=== PATIENT | male | born 1940 | race Caucasian/White ===

== ENCOUNTER 2019-09-13 22:59 | Inpatient (IN) | payer MEDICARE, BC ==
[2019-09-14] MEDS ORDERED: Pantoprazole 40 MG VIAL ONE (00:06)
[2019-09-14] MEDS ORDERED: Ondansetron PF 4 MG/2 ML Vial IVP PRN (01:33)
[2019-09-14] MEDS ORDERED: Ondansetron ODT 4 MG TAB PO PRN (01:33)
[2019-09-14] MEDS ORDERED: HumaLOG 300 UNITS/3 ML VIAL SC PRN (01:33)
[2019-09-14] MEDS ORDERED: Acetaminophen 650 MG Suppository PR PRN (01:33)
[2019-09-14] MEDS ORDERED: Dextrose 5% in Water 1,000 ML IV PRN (01:33)
[2019-09-14] MEDS ORDERED: Senokot S 8.6-50 MG TAB PO PRN (01:33)
[2019-09-14] MEDS ORDERED: Acetaminophen 325 MG TAB PO PRN (01:33)
[2019-09-14] MEDS ORDERED: Dextrose 50% Abboject 50 ML SYRINGE SLOW IVP PRN (01:33)
[2019-09-14] MEDS ORDERED: Guaifenesin DM 100-10/5 ML UDCUP PO PRN (01:33)
[2019-09-14] MEDS: Sodium Chloride 0.9% 1,000 ML IV SCH ×2 (01:50→15:06)
[2019-09-14] MEDS: Piperacillin/Tazobactam 3.375 GM in Sodium Chloride 0.9% 100 ML IVPB SCH ×4 (02:13→20:32)
--- NOTE | 2019-09-14 02:15 | HP ---
PRIMARY CARE PHYSICIAN: Dr. James Cerrato. CHIEF COMPLAINT: Altered mental status. HISTORY OF PRESENT ILLNESS: This is a 79-year-old male, with a known history of coronary artery disease, insulin-dependent diabetes mellitus, hyperlipidemia, hypothyroidism, COPD, and hypertension with question of some mild dementia who presented to the [facility] with altered mental status. The patient reportedly was confused starting this morning. Patient's family called EMS and he was brought to the [facility]. There, patient reports that he was not able to tell the date and felt confused about why he was there. He had a negative CT of the brain. There were some abnormalities in his liver function tests. The CT abdomen which showed a possible perforated ulcer versus duodenitis. Hence, the patient was transferred here. The patient reportedly had some tenderness of his abdomen to palpation, but otherwise was asymptomatic. The ER doctor here did talk to Dr. Hart and he recommended continuing the antibiotics and then observation in the hospital and then he will consult. Patient reports that he feels much better than he did this morning. He is now alert and oriented x3, though some question about him having some mild dementia, but he was able to tell me the date, where he is, why he is here, and remembered all of his medical details as well. REVIEW OF SYSTEMS: CONSTITUTIONAL: No fevers. No chills. HEENT: Eyes; no double vision or blurred vision. ENT; no congestion, drainage, or sore throat. CARDIOVASCULAR: No chest pain. No palpitations or racing heart. PULMONARY: No coughing, wheezing, or shortness of breath. GASTROINTESTINAL: No abdominal pain. No nausea or vomiting. No diarrhea or constipation. GENITOURINARY: No dysuria or hematuria. MUSCULOSKELETAL: No muscle aches or joint pain. SKIN: No rashes or lesions noted. NEUROLOGIC: No numbness, tingling, or focal weakness. PAST MEDICAL HISTORY: 1. Coronary artery disease. 2. Diabetes mellitus, insulin dependent, taking his long-acting and short-acting insulin. 3. Hyperlipidemia. 4. Hypothyroidism. 5. COPD. 6. Hypertension. PAST SURGICAL HISTORY: Pacemaker placement. FAMILY HISTORY: Patient does not know of any family medical problems. SOCIAL HISTORY: Patient smokes pipe occasionally, nothing regular. No alcohol or illicit drug use. He does live by himself, but his grandson lives next door to him and his daughter lives the next door down. Patient is a full code. He states that his daughter would be his medical decision maker, her name is Kaila Corona. ALLERGIES: NO KNOWN DRUG ALLERGIES. CURRENT MEDICATIONS: 1. Levothyroxine 125 mcg daily. 2. Metformin 500 mg 3 times a day. 3. Lisinopril 10 mg daily. 4. Atorvastatin 10 mg daily. 5. Tresiba insulin 8 units subcu daily and Humulin R 10 units in the morning and 14 units at night. 6. Aspirin 81 mg daily. PHYSICAL EXAMINATION: VITAL SIGNS: Blood pressure 118/58, pulse 70, respirations 17, O2 saturation 98% on room air, and temperature 98.9. GENERAL: This is a well-developed, well-nourished white male, in no acute distress. HEENT: Pupils are equal, round, and reactive to light. Oropharynx is clear without lesions, erythema, or exudate. NECK: Supple. No lymphadenopathy. No thyroid nodules or enlargement. HEART: Regular rate and rhythm. No murmurs, rubs, or gallops. LUNGS: Clear to auscultation bilaterally. No wheezes, crackles, or rhonchi. ABDOMEN: Soft. Mild discomfort to palpation diffusely. No focal areas of tenderness. No guarding or rebound tenderness. Normoactive bowel sounds. No hepatosplenomegaly or other masses. EXTREMITIES: No clubbing, cyanosis, or edema. SKIN: No rashes or lesions noted. NEUROLOGIC: He moves all extremities equally. No facial droop. PSYCHIATRIC: Patient is currently alert and oriented x3. Normal mood and affect. LABORATORY DATA: CBC with normal white blood cell count of 8.2, 82% neutrophils, hemoglobin 12, hematocrit 39, and platelet count 113. Complete metabolic panel is notable for glucose of 350, down to 263 at our emergency room. Total bilirubin of 2.8, AST of 692, ALT of 495, and alkaline phosphatase of 359. The rest of the CMP was normal. Lactic acid was normal at 2.0. Troponin was indeterminate at 0.032. Urinalysis was grossly unremarkable, except for a lot of sugar. Chest x-ray. I did review the chest x-ray done in the emergency room along with the radiologist's report. There is no acute cardiopulmonary process visualized. CT of the brain shows no acute intracranial process. CT of the abdomen and pelvis shows inflammation around the second part of the duodenum and possibly in the third part of the duodenum as well and then a very small pocket of extraluminal air, which is concerning for the possibility of a perforated ulcer versus a duodenal diverticulum. ASSESSMENT: 1. Altered mental status, resolving, likely secondary to metabolic encephalopathy, improved with fluids and antibiotics. 2. Duodenitis with possible perforation. Patient might possibly have an ulcer versus having a poorly visualized diverticulum. Dr. Hart has been consulted and is going to follow the patient during hospitalization. For now, we will make the patient n.p.o. We will continue Zosyn and continue IV fluids and we will monitor for development of any worsening symptoms. Currently, patient is not septic. We will give Protonix IV 40 mg twice a day. 3. Diabetes mellitus, insulin dependent. We will give patient long-acting insulin 8 units subcu daily and mild insulin sliding scale along with continuing metformin. We will do fingerstick blood sugars q.a.c. and at bedtime. 4. Coronary artery disease. We will resume patient's home medications, including atorvastatin and aspirin. 5. Gastrointestinal prophylaxis. Patient is on Protonix. 6. Deep venous thrombosis prophylaxis. Put patient on sequential compression devices while in bed. 7. Code status. Patient is a full code. Should he be incapacitated, his daughter would be his medical decision maker. Her name is Kaila Corona. Job ID: [id number]
[2019-09-14] MEDS: Levothyroxine Sodium 125 MCG TAB PO SCH (05:59)
[2019-09-14 06:35] LABS: Anion Gap 13 mmol/L (10-20); BUN (Urea Nitrogen) 20 mg/dL (8.4-25.7); Calc. Creatinine Clearance 0 mL/min (70-130); Calcium 8.6 mg/dL (7.8-10.44); Carbon Dioxide 25 mmol/L (23-31); Chloride 106 mmol/L (98-107); Estimated GFR-MDRD 72; Glucose 274 mg/dL (83-110); Potassium 3.7 mmol/L (3.5-5.1); Sodium 140 mmol/L (136-145)
[2019-09-14 06:55] LABS: #Eosinphils 0.1 thou/uL (0.0-0.7); #Lymphocytes 0.6 thou/uL (1.20-3.40); #Monocytes 0.4 thou/uL (0.11-0.59); %Eosinophils 1.3 % (0.0-10.0); %Monocytes 6.2 % (0.0-10.0); %Neutrophils 82.5 % (42.0-75.0); Elliptocytes SLIGHT = 2-5 cells (100X) (0-1/hpf); Hemoglobin 11.5 g/dL (14.0-18.0); MDiff Complete? YES; Mean Corpuscular HGB CONC 33.4 g/dL (32.0-36.0); Mean Corpuscular Volume 90.1 fL (78.0-98.0); Mean Platelet Volume 9.1 fL (7.4-10.4); Platelet Count 109 thou/uL (130-400); Platelet Morphology Comment Appears Decreased; RBC Distribution Width 14.1 % (11.5-14.5); Red Blood Cell (RBC) Count 3.81 mill/uL (4.70-6.10); Schistocytes SLIGHT = 2-5 cells (100X) (0-1/hpf); White Blood Cell (WBC) Count 6.1 thou/uL (4.8-10.8)
[2019-09-14] MEDS: HumaLOG 300 UNITS/3 ML VIAL SC PRN (07:14)
[2019-09-14 08:02] LABS: ALT (SGPT) 324 U/L (8-55); AST (SGOT) 307 U/L (5-34); Albumin 3.4 g/dL (3.4-4.8); Alkaline Phosphatase 251 U/L (40-110); Bilirubin, Total 1.3 mg/dL (0.2-1.2); Globulin 2.4 g/dL (2.4-3.5); Lipase 891 U/L (8-78); Protein, Total 5.8 g/dL (5.8-8.1)
[2019-09-14] MEDS: Insulin Glargine 8 UNITS in Pre-Filled Syringe 1 EACH SC SCH (08:02)
--- NOTE | 2019-09-14 08:02 | CON ---
DATE OF CONSULTATION: 09/14/2019 CHIEF COMPLAINT: Duodenitis. HISTORY OF PRESENT ILLNESS: This is a 79-year-old male with a history of mild dementia, who presented to the emergency room with altered mental status. In the course of his workup, he was found to have upper abdominal mild pain and an elevation in his liver function test. CT scan showed severe inflammatory change in the area of the duodenum and retroperitoneum. There was one single small dot of air that could be outside of the lumen of the bowel, but there was no diffuse free fluid or free air in the abdomen. The patient denies pain, not tachycardic, hemodynamically stable. Denies previous history of abdominal pain. No history of NSAID use. He smokes a pipe. No alcohol. No other drugs. PAST MEDICAL HISTORY: Includes coronary artery disease, diabetes mellitus insulin dependent, hyperlipidemia, hypothyroidism, COPD, hypertension. SURGICAL HISTORY: Pacemakers. FAMILY HISTORY: There was no family history of GI malignancy or anesthetic related complications. MEDICATIONS: Medicines at home include: 1. Metformin. 2. Lisinopril. 3. Statin. 4. Insulin. 5. Aspirin only 81 mg. REVIEW OF SYSTEMS: Ten-system review of systems is otherwise negative unless described above. PHYSICAL EXAMINATION: VITAL SIGNS: Blood pressure 146/77, pulse 70, respirations 16. He is afebrile. HEENT: Sclerae anicteric. Oropharynx clear. NECK: No lymphadenopathy. CHEST: Clear. HEART: Regular rate. ABDOMEN: Soft, minimally tender, epigastric, without guarding or rebound. EXTREMITIES: No ischemia or edema to extremities. LABORATORY DATA: Sodium 140, potassium 3.7, creatinine 1.0, glucose 274. Liver function tests and lipase pending this morning. DIAGNOSTIC DATA: CT scan shows duodenitis and inflammatory change in areas of the second portion of the duodenum. ASSESSMENT: 1. Elevation of liver function tests including bilirubin. 2. No risk factors for perforated duodenal ulcer. PLAN: This small dot of possible free intraperitoneal air is not really significant. He has no abdominal signs of a perforation. He is not tachycardic. I have retested the liver function tests this morning as well as a lipase. We will see what the labs show. Recommended covering with PPI with a GI consult as well. Job ID: [id number]
[2019-09-14] MEDS: metFORMIN 500 MG TAB PO SCH ×2 (08:03→17:50)
[2019-09-14] MEDS: Lisinopril 10 MG TAB PO SCH (08:03)
[2019-09-14] MEDS: Pantoprazole 40 MG VIAL IVP SCH ×2 (08:06→20:32)
[2019-09-14] MEDS: Aspirin 81 mg Enteric Coated Tablet PO SCH (08:14)
[2019-09-14] MEDS ORDERED: Iopamidol-370 76% 500 ML 1 ML ONE (09:06)
--- NOTE | 2019-09-14 13:17 | ULT ---
GALLBLADDER ULTRASOUND: Date: 09/14/2019 INDICATION: Elevated liver function tests. FINDINGS: Gallbladder demonstrates pericholecystic edema and fluid with thickened gallbladder wall. No definite gallstone identified. Technologist describes a negative Liu's sign. Small amount of free fluid around the liver margin. Small right pleural effusion. The liver appears unremarkable. The right kidney is imaged and is unremarkable. Pancreas is obscured. IMPRESSION: 1. Small volume ascites. Pericholecystic edema and fluid, and mild gallbladder wall thickening. Nega tive Liu's sign is described. 2. Small right pleural effusion. POS: [facility]
[2019-09-14 13:38] VITALS: BMI 26.6
--- NOTE | 2019-09-14 14:53 | PDOC.HOSPP ---
- Subjective Encounter Date: 09/14/19 Encounter Time: 14:49 Subjective: Mr. Muniz was seen today in follow-up of altered mental status, and possible duodenitits. He does not have any complaints. He denies abdominal pain, no nausea, he just wants to eat. - Objective Vital Signs & Weight: Vital Signs (12 hours) Temp Pulse Resp BP BP BP Pulse Ox 09/14/19 09:13 159/72 H 09/14/19 09:05 159/72 H 09/14/19 08:03 146/77 H 09/14/19 08:00 98 09/14/19 07:35 98.3 F 70 16 146/77 H 98 09/14/19 05:33 98 F 71 18 148/77 H Weight Admit Weight 169 lb 12.095 oz Weight 169 lb 12.095 oz Result Diagrams: 09/14/19 06:04 09/14/19 06:04 Additional Labs: Accuchecks 09/14/19 09/13/19 04:53 23:17 POC Glucose 271 H 263 H Hospitalist ROS - Medication Medications: Active Medications Generic Name Dose Route Start Last Admin Trade Name Freq PRN Reason Stop Dose Admin Aspirin 81 mg 09/14/19 09:00 09/14/19 08:14 Ecotrin PO Not Given DAILY PÉREZ Sodium Chloride 1,000 mls @ 75 mls/hr 09/14/19 01:33 09/14/19 01:50 Normal Saline 0.9% IV 1,000 mls .[id number] PÉREZ Administration Piperacillin Sod/Tazobactam 100 mls @ 200 mls/hr 09/14/19 02:00 09/14/19 08: 03 Sod 3.375 gm/ Sodium Chloride IVPB 100 mls 0200,0800,1400,2000 PÉREZ Administration Insulin Glargine 8 units/ 0.08 mls @ 0 mls/hr 09/14/19 09:00 09/14/19 08:02 Miscellaneous Medication SC Not Given QAM PÉREZ Insulin Human Lispro 0 units 09/14/19 01:33 09/14/19 07:14 Humalog SC 4 unit .MILD SLIDING SCALE PRN Administration Mild Correctional Scale Levothyroxine Sodium 125 mcg 09/14/19 06:00 09/14/19 05:59 Synthroid PO 125 mcg 0600 PÉREZ Administration Lisinopril 10 mg 09/14/19 09:00 09/14/19 08:03 Zestril PO 10 mg DAILY PÉREZ Administration Metformin HCl 500 mg 09/14/19 08:00 09/14/19 08:03 Glucophage PO Not Given BID-WM [facility] Pantoprazole Sodium 40 mg 09/14/19 09:00 09/14/19 08:06 Protonix IVP 40 mg Q12HR PÉREZ Administration - Exam Eye: PERRL Heart: RRR, no murmur, no gallops, no rubs, normal peripheral pulses Respiratory: CTAB, no wheezes, no rales, no ronchi, normal chest expansion Gastrointestinal: soft, non-tender, non-distended, normal bowel sounds, no palpable masses, no hepatomegaly, no splenomegaly Extremities: no cyanosis, no edema Hosp A/P (1) Altered mental status Code(s): R41.82 - ALTERED MENTAL STATUS, UNSPECIFIED Status: Acute (2) Transaminitis Code(s): R74.0 - NONSPEC ELEV OF LEVELS OF TRANSAMNS & LACTIC ACID DEHYDRGNSE Status: Acute (3) Dementia Code(s): F03.90 - UNSPECIFIED DEMENTIA WITHOUT BEHAVIORAL DISTURBANCE Status: Acute - Plan * Altered mental status- He is awake and alert, and conversing- I suspect he is at his baseline. He is confused, but likely from dementia * Possible Duodenitis- Agree with Protonix IV. * He has been evaluated by Surgery, and there is no suspicion for perforation. His LFT, and Lipase are elevated, but he does not have any symptoms attributed to pancreatitis- will try him on clear liquid diet, and ask GI to see him *
--- NOTE | 2019-09-14 19:40 | CT ---
CT abdomen and pelvis without and with IV contrast HISTORY: Abdominal pain. Possible pancreatitis. COMPARISON: 09/13/2019. FINDINGS: Small amount of bilateral pleural fluid and bibasilar lung atelectasis have increased. Panc reas remains small without associated inflammation. Subtle edematous thickening of the gastric antrum has progressed slightly. The inflamed appearance of the second portion of the duodenum and imm ediately adjacent fat has decreased slightly. The small pockets of gas just medial to the second portion of the duodenum are now better defined and consistent with a large and a small duodenal diver ticulum. Intra-abdominal fat stranding throughout the remainder of the abdomen and small amounts of ascites ar e otherwise stable. Prominent calcification throughout the arterial structures. IMPRESSION : Slight interval improvement in inflammatory appearance of the second portion of the duodenum. Gastric antrum now appears mildly inflamed. Pancreas does not appear inflamed. Duodenal diverticula account for the gas pockets medial to the second portion the duodenum. No eviden ce of perforation. Slight interval increase in bilateral pleural fluid.
[2019-09-14] MEDS: Atorvastatin Calcium 10 MG TAB PO SCH (20:32)
[2019-09-15] MEDS: Piperacillin/Tazobactam 3.375 GM in Sodium Chloride 0.9% 100 ML IVPB SCH ×4 (02:48→21:02)
[2019-09-15] MEDS: Sodium Chloride 0.9% 1,000 ML IV SCH ×2 (04:00→10:13)
[2019-09-15] MEDS: Levothyroxine Sodium 125 MCG TAB PO SCH (05:17)
[2019-09-15] MEDS: HumaLOG 300 UNITS/3 ML VIAL SC PRN ×2 (05:57→11:57)
--- NOTE | 2019-09-15 06:24 | CON ---
DATE OF CONSULTATION: 09/14/2019 REASON FOR CONSULTATION: Abnormal abdominal sonogram, abnormal liver function tests, and evidence of pancreatitis. HISTORY OF PRESENT ILLNESS: Mr. Devon Muniz is a very pleasant 79-year-old , hospitalized through the ER with altered mental status and also mild abnormal lab data and abnormal sonogram. The patient is awake, alert, and communicative. He is oriented to time, place, and person. The patient denies abdominal pain, nausea, or vomiting. No history of any fever. No history of diarrhea, hematochezia, or melena. The patient was brought to the ER because of altered mental status and on physical exam was found to be tender over the epigastric area. Subsequently, he was found to have abnormal LFTs and also evidence of pancreatitis. He had abdominal sonogram done shows no gallstones, but shows mild ascites and also thickening of the gallbladder wall and small amount of pericholecystic fluid. The patient had no fever. There is a possibility of peptic ulcer disease and he is on IV antibiotics. At the present time, he appears very comfortable. Denies any abdominal pain, any chest pain, any dyspnea, or any other GI symptoms. Lab data shows no leukocytosis. WBC 6100, polymorphs 82, lymphocytes 10, and monocytes 6. Platelet count is slightly low at 109,000. Chemistry panel shows normal lytes. Glucose is 274, calcium 8.6, bilirubin 1.3, AST is 307, ALT 324, alkaline phosphatase 251. Lipase is elevated at 891. Abdominal sonogram again shows normal caliber bile duct, but does show small amount of ascites and thickened gallbladder wall. The pancreas is not well visualized. There is some swelling around the duodenal area. No relevant history. ALLERGIES: NONE. SOCIAL HISTORY: The patient does not smoke or drink alcohol. MEDICAL ILLNESSES: 1. Hypertension. 2. Hypothyroidism. 3. Chronic obstructive pulmonary disease. 4. Diabetes mellitus. 5. Hyperlipidemia. PAST SURGICAL HISTORY: Status post pacemaker implant in the past. No other major surgeries. MEDICATION LIST: Reviewed, which includes: 1. Atorvastatin. 2. Levothyroxine. 3. Lisinopril. 4. Insulin. 5. Aspirin. 6. Metformin. 7. . REVIEW OF SYSTEMS: 10-point system reviewed. CONSTITUTIONAL: No history of any weight loss. No fever or chills. No change in exercise tolerance. HEAD: No chronic headache. No dizziness. EYES: No diplopia. No impaired vision. EARS: No ear discharge or ear pain. NOSE: No nosebleed. THROAT: No sore throat or dysphagia. NECK: No stiffness or any limitation of movement. LUNGS: No chronic coughing. No hemoptysis or dyspnea. CARDIOVASCULAR: No chest pain. No palpitation. No dyspnea, orthopnea, or PND. GI: No abdominal pain. No nausea or vomiting, but he is tender on exam. No hematochezia. No melena. GENITOURINARY: No dysuria or hematuria. MUSCULOSKELETAL: No pain. No limitation of movement. NEUROPSYCHIATRY: No depression or anxiety. PHYSICAL EXAMINATION: GENERAL: He is thin built, appears very comfortable. He is awake, alert, and communicative. The admitting history and physical confused. Right now, he is very much alert and was able to give me a reasonably good history. VITAL SIGNS: Afebrile. Pulse is 70, blood pressure 151/83. HEENT: Conjunctivae clear. NECK: Supple. No adenitis or thyromegaly noted. CARDIOVASCULAR: Normal heart sounds. No murmur heard. LUNGS: Clear to auscultation. ABDOMEN: Soft. Abdomen is nondistended. Abdomen is minimally tender over the epigastric area. There is no rebound or guarding. Overall, the exam is very benign except for mild tenderness more over the epigastric area. Bowel sounds are normal. EXTREMITIES: Reveal no edema. DIAGNOSTIC STUDIES: LABORATORY RESULTS: The lab data on admission shows normal leukocytosis. WBC count is normal at 6100, hemoglobin is 11.5 which is slightly low, hematocrit 34.4, MCV 90.1, platelet count is low at 109,000, polymorphs 82, lymphocytes 10, monocytes 6. Chemistry panel; normal lytes, glucose 274, BUN is 20, creatinine 1, bilirubin is 1.3, AST 307, ALT 324, alkaline phosphate 251, albumin is 3.4, lipase is 891. IMPRESSION: 1. A 79-year-old male, altered mental status. On physical exam . He does not complain of pain, but he is tender on physical exam. The abdomen is very benign. No leukocytosis and no guarding or rigidity. Abdominal sonogram shows mild abdominal findings with thickened gallbladder wall, mild ascites, and also thickened duodenum. He does have evidence of pancreatitis. There is a possibility that could have gallstone pancreatitis as he does not drink any alcohol and does not take mediciations that would account for the pancreatitis. 2. Diabetes mellitus. 3. Hyperlipidemia. 4. Hypothyroidism. 5. Hypertension. 6. Chronic obstructive pulmonary disease. 7. Status post pacemaker implant. 8. Low platelet count, etiology unclear and there is no prior history of liver disease. RECOMMENDATION: 1. Keep n.p.o. 2. Continue IV antibiotics. 3. Abdominal CAT scan with contrast to get a better idea pancreatic area. He may need endoscopy before discharge hopefully on Thursday. We will do CAT scan first and then we will make further recommendation. Job ID: [id number]
[2019-09-15 08:31] LABS: #Eosinphils 0.1 thou/uL (0.0-0.7); #Lymphocytes 0.8 thou/uL (1.20-3.40); #Monocytes 0.4 thou/uL (0.11-0.59); %Basophils 0.3 % (0.0-1.0); %Eosinophils 3.2 % (0.0-10.0); %Lymphocytes 17.6 % (21.0-51.0); %Neutrophils 69.9 % (42.0-75.0); Hemoglobin 10.5 g/dL (14.0-18.0); Mean Corpuscular Hemoglobin 29.1 pg (27.0-31.0); Mean Platelet Volume 8.5 fL (7.4-10.4); Platelet Count 108 thou/uL (130-400); RBC Distribution Width 14.2 % (11.5-14.5); Red Blood Cell (RBC) Count 3.62 mill/uL (4.70-6.10); White Blood Cell (WBC) Count 4.3 thou/uL (4.8-10.8)
[2019-09-15] MEDS: Aspirin 81 mg Enteric Coated Tablet PO SCH (08:51)
[2019-09-15] MEDS: metFORMIN 500 MG TAB PO SCH ×2 (08:51→17:28)
[2019-09-15] MEDS: Lisinopril 10 MG TAB PO SCH (08:51)
[2019-09-15 08:52] LABS: ALT (SGPT) 191 U/L (8-55); AST (SGOT) 92 U/L (5-34); Albumin 3.1 g/dL (3.4-4.8); Alkaline Phosphatase 200 U/L (40-110); Anion Gap 10 mmol/L (10-20); BUN (Urea Nitrogen) 19 mg/dL (8.4-25.7); Bilirubin, Total 0.7 mg/dL (0.2-1.2); Calc. Creatinine Clearance 58 mL/min (70-130); Carbon Dioxide 25 mmol/L (23-31); Chloride 108 mmol/L (98-107); Estimated GFR-MDRD 60; Globulin 2.3 g/dL (2.4-3.5); Glucose 192 mg/dL (83-110); Potassium 3.4 mmol/L (3.5-5.1); Protein, Total 5.4 g/dL (5.8-8.1); Sodium 140 mmol/L (136-145)
[2019-09-15] MEDS: Insulin Glargine 8 UNITS in Pre-Filled Syringe 1 EACH SC SCH (08:52)
[2019-09-15] MEDS: Pantoprazole 40 MG VIAL IVP SCH ×2 (08:52→21:49)
--- NOTE | 2019-09-15 17:46 | PDOC.HOSPP ---
- Subjective Encounter Date: 09/15/19 Encounter Time: 17:44 Subjective: Mr. Muniz was seen today in follow-up of duodenitis. He tells me he feels fine , and denies any abdominal pain. - Objective Vital Signs & Weight: Vital Signs (12 hours) Temp Pulse Resp BP BP BP Pulse Ox 09/15/19 12:00 97.7 F 73 18 159/82 H 97 09/15/19 11:05 97.8 F 79 18 138/84 96 09/15/19 08:51 1156/74 H 09/15/19 08:00 97.7 F 70 18 156/74 H 97 Weight Admit Weight 169 lb 12.095 oz Weight 169 lb 12.095 oz Result Diagrams: 09/15/19 08:19 09/15/19 08:19 Additional Labs: Accuchecks 09/15/19 09/15/19 09/15/19 16:52 10:50 04:46 POC Glucose 108 203 H 378 H 09/14/19 19:38 POC Glucose 306 H Hospitalist ROS - Medication Medications: Active Medications Generic Name Dose Route Start Last Admin Trade Name Freq PRN Reason Stop Dose Admin Aspirin 81 mg 09/14/19 09:00 09/15/19 08:51 Ecotrin PO 81 mg DAILY PÉREZ Administration Atorvastatin Calcium 10 mg 09/14/19 21:00 09/14/19 20:32 Lipitor PO 10 mg HS PÉREZ Administration Sodium Chloride 1,000 mls @ 75 mls/hr 09/14/19 01:33 09/15/19 10:13 Normal Saline 0.9% IV 1,000 mls .[id number] PÉREZ Administration Piperacillin Sod/Tazobactam 100 mls @ 200 mls/hr 09/14/19 02:00 09/15/19 13: 22 Sod 3.375 gm/ Sodium Chloride IVPB 100 mls 0200,0800,1400,2000 PÉREZ Administration Insulin Glargine 8 units/ 0.08 mls @ 0 mls/hr 09/14/19 09:00 09/15/19 08:52 Miscellaneous Medication SC 0.08 mls QAM PÉREZ Administration Insulin Human Lispro 0 units 09/14/19 01:33 09/15/19 11:57 Humalog SC 3 unit .MILD SLIDING SCALE PRN Administration Mild Correctional Scale Insulin Human Lispro 0 units 09/14/19 01:33 09/14/19 20:32 Humalog SC 3 unit .BEDTIME SLIDING SC PRN Administration Bedtime Correctional Scale Levothyroxine Sodium 125 mcg 09/14/19 06:00 09/15/19 05:17 Synthroid PO 125 mcg 0600 PÉREZ Administration Lisinopril 10 mg 09/14/19 09:00 09/15/19 08:51 Zestril PO 10 mg DAILY PÉREZ Administration Metformin HCl 500 mg 09/14/19 08:00 09/15/19 17:28 Glucophage PO 500 mg BID-WM PÉREZ Administration Pantoprazole Sodium 40 mg 09/14/19 09:00 09/15/19 08:52 Protonix IVP 40 mg Q12HR PÉREZ Administration - Exam Eye: PERRL, anicteric sclera Heart: RRR, no murmur, no gallops, no rubs, normal peripheral pulses Respiratory: CTAB, no wheezes, no rales, no ronchi, normal chest expansion, no tachypnea Gastrointestinal: soft, non-tender, non-distended, normal bowel sounds, no palpable masses Extremities: no cyanosis, no edema Hosp A/P (1) Altered mental status Code(s): R41.82 - ALTERED MENTAL STATUS, UNSPECIFIED Status: Acute (2) Transaminitis Code(s): R74.0 - NONSPEC ELEV OF LEVELS OF TRANSAMNS & LACTIC ACID DEHYDRGNSE Status: Acute (3) Dementia Code(s): F03.90 - UNSPECIFIED DEMENTIA WITHOUT BEHAVIORAL DISTURBANCE Status: Acute (4) Hypertension Code(s): I10 - ESSENTIAL (PRIMARY) HYPERTENSION Status: Acute (5) Diabetes mellitus type 2 in nonobese Code(s): E11.9 - TYPE 2 DIABETES MELLITUS WITHOUT COMPLICATIONS Status: Acute - Plan * Altered mental status- resolved- may be merely his dementia * Possible Duodenitis- Continue Protonix IV and plan is for EGD tomorrow * Dementia- stable * HTN- blood pressure is controlled * DM- blood glucose is stable- continue Insulin and SSI, while taking oral intake * Hypothyroidism- he is clinically euthyroid continue Levothyroxine
[2019-09-15] MEDS: Atorvastatin Calcium 10 MG TAB PO SCH (21:49)
[2019-09-16] MEDS: Sodium Chloride 0.9% 1,000 ML IV SCH ×2 (01:11→15:46)
[2019-09-16] MEDS: Piperacillin/Tazobactam 3.375 GM in Sodium Chloride 0.9% 100 ML IVPB SCH ×3 (02:12→15:46)
[2019-09-16] MEDS: Levothyroxine Sodium 125 MCG TAB PO SCH (03:28)
--- NOTE | 2019-09-16 08:10 | PRG ---
DATE OF SERVICE: 09/15/2019 This is a hospitalist note. SUBJECTIVE: This is a 79-year-old , hospitalized on 09/14/2019, with altered mental status and on physical exam was found to be tender over the epigastric area. He underwent an abdominal sonogram, which revealed possible small amount of free air from the duodenal sweep and some free fluid. He has no gallstones. The pancreatic area was not visualized during the sonogram. The patient had no fever, no leukocytosis. On exam yesterday, he was very comfortable, did not offer any abdominal pain, nausea, or vomiting. Abdomen was slightly tender over the epigastric area. pancreatitis. The liver function tests were elevated. Not clear what is causing his abnormal LFTs and also abdominal tenderness. He had abdominal CAT scan done late yesterday. The abdominal CAT scan showed some thickening of the gastric antrum and duodenum. No free air seen in the abdomen. found to be a diverticulum in the descending duodenum. The patient had no pancreatic mass. No liver masses. No dilation of bile duct. OBJECTIVE: GENERAL: Appears very comfortable, afebrile. VITAL SIGNS: Very stable. Pulse is 79, blood pressure is 138/84. HEENT: Conjunctivae are clear. NECK: Supple. CARDIOVASCULAR: Within normal limits. LUNGS: Within normal limits. ABDOMEN: Soft. Abdomen is nontender. . No organomegaly. No masses. CLINICAL IMPRESSION: 1. Altered mental status, resolved, etiology unclear. 2. Abnormal LFTs and elevated serum lipase, etiology unclear as he has no gallstones on sonogram and he does not drink alcohol and there is no dilation of the common bile duct. 3. Mild thrombocytopenia, etiology unknown. Overall, he has improved tremendously. He is awake, alert, and communicative. He was given a diabetic diet on this day, and he ate well and he has no abdominal pain. LABORATORY DATA: The lab data from today still show elevation of the LFTs, but seems to be coming down. The AST is down to 92 from previous 307, ALT down to 191 from 324, alkaline phosphatase down to 200 from 251. Bilirubin is 0.7. It is possible that the patient could have had a common bile duct pass down the bile duct, it could account for the abnormal LFTs and also the elevated lipase. Interestingly, he has no abdominal pain, no nausea or vomiting. RECOMMENDATIONS: EGD tomorrow to evaluate the stomach and duodenum. The patient probably can be discharged home after EGD tomorrow and will follow through outpatient. He is on atorvastatin for hyperlipidemia, which probably should be stopped for a while to see if that is causing abnormal LFTs. Dr. Chon Hayes is on-call for me, and we will set up an EGD tomorrow. Job ID: [id number]
[2019-09-16 08:34] LABS: #Eosinphils 0.1 thou/uL (0.0-0.7); #Lymphocytes 0.9 thou/uL (1.20-3.40); #Monocytes 0.3 thou/uL (0.11-0.59); #Neutrophils 2.8 thou/uL (1.40-6.50); %Basophils 0.2 % (0.0-1.0); %Lymphocytes 22.3 % (21.0-51.0); %Monocytes 6.8 % (0.0-10.0); %Neutrophils 68.7 % (42.0-75.0); Hemoglobin 10.7 g/dL (14.0-18.0); Mean Corpuscular HGB CONC 32.8 g/dL (32.0-36.0); Mean Corpuscular Hemoglobin 29.6 pg (27.0-31.0); Mean Corpuscular Volume 90.3 fL (78.0-98.0); Mean Platelet Volume 8.9 fL (7.4-10.4); Platelet Count 100 thou/uL (130-400); RBC Distribution Width 14.1 % (11.5-14.5); Red Blood Cell (RBC) Count 3.61 mill/uL (4.70-6.10)
[2019-09-16 08:53] LABS: ALT (SGPT) 132 U/L (8-55); AST (SGOT) 46 U/L (5-34); Alkaline Phosphatase 171 U/L (40-110); Anion Gap 17 mmol/L (10-20); BUN (Urea Nitrogen) 18 mg/dL (8.4-25.7); Bilirubin, Total 0.6 mg/dL (0.2-1.2); Calc. Creatinine Clearance 59 mL/min (70-130); Calcium 7.6 mg/dL (7.8-10.44); Carbon Dioxide 17 mmol/L (23-31); Chloride 109 mmol/L (98-107); Estimated GFR-MDRD 62; Globulin 2.2 g/dL (2.4-3.5); Glucose 320 mg/dL (83-110); Magnesium 1.2 mg/dL (1.6-2.6); Phosphorus 2.4 mg/dL (2.3-4.7); Potassium 4.1 mmol/L (3.5-5.1); Protein, Total 5.2 g/dL (5.8-8.1); Sodium 139 mmol/L (136-145)
[2019-09-16] MEDS ORDERED: Magnesium Sulfate 4 GM in Sodium Chloride 0.9% 250 ML 250 ML IVPB SCH (09:30)
[2019-09-16] MEDS: metFORMIN 500 MG TAB PO SCH ×2 (10:18→16:59)
[2019-09-16] MEDS: Pantoprazole 40 MG VIAL IVP SCH ×2 (10:21→21:00)
[2019-09-16] MEDS: Lisinopril 10 MG TAB PO SCH (10:24)
[2019-09-16] MEDS: Aspirin 81 mg Enteric Coated Tablet PO SCH (10:25)
[2019-09-16] MEDS: Insulin Glargine 8 UNITS in Pre-Filled Syringe 1 EACH SC SCH (10:31)
[2019-09-16] MEDS: HumaLOG 300 UNITS/3 ML VIAL SC PRN ×2 (10:53→16:59)
[2019-09-16] MEDS ORDERED: PROPOFOL 200 MG/20 ML VIAL ONE (13:57)
--- NOTE | 2019-09-16 14:14 | PRG ---
DATE OF SERVICE: 09/16/2019 SUBJECTIVE: A 79-year-old male was admitted on 14 September 2019, with altered mentation, with abnormal abdominal imaging. He denies any nausea, vomiting, or abdominal discomfort at this time. He is n.p.o. for EGD today. REVIEW OF SYSTEMS: As discussed above, no chest pain, palpitations, fever, chills reported. OBJECTIVE: VITAL SIGNS: Temperature 97.8, pulse of 69, respirations 20, blood pressure of 137/78, O2 saturation 96% on room air. GENERAL: A 79-year-old male, in no apparent distress. LUNGS: Clear to auscultation bilaterally. HEART: S1, S2 present. Regular rate and rhythm. ABDOMEN: Soft, nontender. Bowel sounds present. No rebound or guarding. No costovertebral angle tenderness. EXTREMITIES: No edema or calf tenderness. CURRENT MEDICATIONS: Reviewed. The patient is on 1. Lantus 8 units with IV fluids. 2. Zosyn. 3. IV PPIs. 4. 81 mg aspirin. 5. Lipitor. 6. Levothyroxine. 7. Lisinopril. 8. Metformin. LABORATORY FINDINGS: Magnesium 1.2, potassium 4.1, creatinine 1.1. WBC 4.0 with platelet of 100. CT scan of the abdomen and pelvis by my review showed improvement in the inflammatory appearance of the second portion of the duodenum with some inflammation in the gastric antrum, without any evidence of perforation. Right upper quadrant ultrasound showed small volume ascites. IMPRESSION: 1. Toxic metabolic encephalopathy, improving. 2. Duodenitis/gastritis. 3. Diabetes mellitus type 2. 4. Coronary artery disease. 5. Hypothyroidism. 6. Hyperlipidemia. 7. Chronic obstructive pulmonary disease. 8. Hypertension. 9. Chronic kidney disease, stage 2. 10. Hypomagnesemia. 11. Metabolic acidosis. 12. Abnormal LFTs. PLAN: The patient is scheduled for EGD today. We will continue empiric antibiotics with IV fluids. Continue IV PPIs. We will hold statins due to abnormal LFTs. His LFTs are improving. We will recheck labs in a.m. We will change IV fluid to half NS due to hyperchloremia. Job ID: [id number]
[2019-09-16] MEDS: Sodium Chloride 0.45% 1,000 ML IV SCH ×2 (15:45→21:00)
--- NOTE | 2019-09-16 19:31 | OP ---
DATE OF PROCEDURE: 09/16/2019 PROCEDURE PERFORMED: Esophagogastroduodenoscopy with biopsy. INDICATION FOR PROCEDURE: Abnormal GI imaging showing duodenitis and possible free air, elevated lipase. DESCRIPTION OF PROCEDURE: After the risks and benefits of the procedure were explained to the patient and the patient's surrogate including risks of bleeding, infection, perforation, reactions to anesthesia, aspiration, and/or pain, informed consent was obtained. The patient was then taken to the endoscopy suite, where a deep sedation was administered via propofol and anesthesia support. Once adequate sedation was achieved, the standard gastroscope was introduced into the mouth with intubation of the esophagus, stomach, and the proximal small intestines with the findings listed below. The patient tolerated the procedure well with no immediate perioperative complications. On conclusion of the procedure, the patient was transferred to PACU in satisfactory condition. FINDINGS: Esophagus: Normal-appearing mucosa was seen in the proximal, mid, and distal esophagus. There was no evidence of erosions, ulcerations, mass lesions, or active/recent bleeding. Stomach: Normal-appearing mucosa was seen in the gastric cardia, fundus, body, and along the greater curvature. However, in the antrum and incisura, mild whitish mottling of the gastric mucosa was seen consistent with atrophic gastritis. Upon entry into the gastric antrum, a patch measuring 3 to 4 cm in size was seen in the pre-pyloric region just superior to the pyloric valve itself. In that red patch of erythematous mucosa, 2 very superficial ulcerations were seen measuring 2 to 3 mm in size that were also clean based and had no risk high stigmata of active or recent bleeding. Given the abnormal GI findings on imaging, multiple biopsies were taken from these ulcerations and placed in a specimen jar for further evaluation of possible H pylori. Otherwise, there was no evidence of erosions, mass lesions, or active/recent bleeding. Duodenum: Normal-appearing mucosa was seen in the duodenal bulb. A large duodenal diverticulum was seen in the second portion of the duodenum just past the duodenal sweep, but exhibited normal-appearing mucosa in addition to normal-appearing mucosa within the normal continuous small intestine as well. There was no evidence of erosions, ulcerations, mass lesions, or active/recent bleeding. IMPRESSION: 1. A 3-to 4-cm patch of erythematous mucosa with 2 superficial ulcerations seen in the gastric antrum, status post biopsies for possible Helicobacter pylori. 2. Probable atrophic gastritis seen in the distal stomach. 3. 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 RECOMMENDATIONS: 1. We would continue to avoid NSAIDs if possible during this hospitalization given the propensity to cause inflammation within the stomach and the duodenum. 2. We would continue the patient on pantoprazole 40 mg b.i.d. 3. We will follow up on the biopsy results and treat the patient with triple therapy if positive for Helicobacter pylori. 4. The patient to follow up in the GI clinic with Dr. Figueroa in 2 to 3 weeks for further followup. We will sign off at this time. Again, the patient is to follow up with Dr. Figueroa in the GI Outpatient Clinic in 2 to 3 weeks with followup on the biopsy results at that time. Please call with any additional questions. Job ID: [id number]
[2019-09-17] MEDS: Levothyroxine Sodium 125 MCG TAB PO SCH (05:25)
[2019-09-17] MEDS: HumaLOG 300 UNITS/3 ML VIAL SC PRN (05:26)
[2019-09-17] MEDS: metFORMIN 500 MG TAB PO SCH (07:49)
[2019-09-17] MEDS: Aspirin 81 mg Enteric Coated Tablet PO SCH (07:49)
[2019-09-17] MEDS: Insulin Glargine 8 UNITS in Pre-Filled Syringe 1 EACH SC SCH (07:49)
[2019-09-17] MEDS: Lisinopril 10 MG TAB PO SCH (07:49)
[2019-09-17] MEDS: Pantoprazole 40 MG VIAL IVP SCH (07:50)
[2019-09-17 08:02] VITALS: BP 125/75; TEMP 97.6
--- NOTE | 2019-09-17 08:21 | DIS ---
DATE OF ADMISSION: 09/14/2019 DATE OF DISCHARGE: 09/17/2019 DISCHARGE DISPOSITION: Home. FOLLOWUP: 1. Follow up with primary care physician, Dr. Keri Moore in 1 week. 2. Follow up with Dr. eVronika Figueroa in 1 week. 3. Repeat LFTs after 1 week is recommended. 4. The patient was advised to hold Lipitor for now due to abnormal LFTs. 5. The patient was advised to follow up on the gastric biopsy report. ALLERGIES: NO KNOWN DRUG ALLERGIES. DISCHARGE MEDICATIONS: Protonix 40 mg b.i.d. All other home medications were left unchanged except for statins. The patient was seen and examined on the day of discharge. Denies any new complaints. No fever, chills, chest pain, nausea, or vomiting reported. DIAGNOSTIC TESTS: 1. Total bilirubin on admission was 2.8, at discharge is 0.6. 2. AST was 692, at discharge is 46. ALT on admission was 495, at discharge is 132. Alkaline phosphatase on admission was 359, at discharge is 171. 3. Troponin was 0.032. 4. Potassium 3.4, at discharge is 4.1. 5. Blood cultures were negative. 6. CT scan of the abdomen and pelvis showed possible duodenitis with questionable perforation. 7. CT scan of the brain showed diffuse cortical atrophy with long-term small- vessel disease. 8. Right upper quadrant ultrasound showed pericholecystic edema and fluid with mild gallbladder wall thickening. 9. Lipase on admission 851. At discharge 54. INPATIENT PROCEDURES: On September 16, 2019, the patient underwent EGD that showed 3 to 4 cm patch of erythematous mucosa with two superficial ulcerations seen in the gastric antrum, status post biopsies. There was also probable atrophic gastritis in the distal stomach. There was a large duodenal diverticulum in the second portion of the duodenum, most likely the reason for possible free air seen on the initial scans. BRIEF HOSPITAL COURSE: The patient is a 79-year-old male with coronary artery disease, diabetes mellitus type 2, hyperlipidemia, and hypertension, presented to the emergency room with altered mentation. He was found to have abnormal LFTs with CT scan concerning for duodenitis versus perforated ulcer. He was monitored on the medical floor. He was evaluated by Gastroenterology as well as General Surgery. He also had significantly abnormal LFTs that gradually improved. He was empirically placed on antibiotics, which were discontinued yesterday. He was started on IV PPI 40 mg b.i.d. that has been transitioned to oral. He underwent EGD as discussed above. He denies any nausea, vomiting, or abdominal discomfort. His mentation is back to baseline. He appears stable for discharge. FINAL DIAGNOSES: 1. Toxic metabolic encephalopathy, resolved. 2. Abn LFTs with elevated lipase on admission - Pt may have passed a stone. - improving 3. Gastritis, rule out H pylori. 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 4. Diabetes mellitus type 2. 5. Coronary artery disease. 6. Hypertension. 7. Hypothyroidism. 8. Chronic obstructive pulmonary disease. 9. Hyperlipidemia. Statins will be held due to abnormal LFTs. 10. Chronic kidney disease, stage 2. 11. Hypomagnesemia, replaced. 12. Metabolic acidosis. 13. Abnormal LFTs on admission, resolved. The patient understands the above plan of care. Job ID: [id number] [facility]
[2019-09-17] MEDS: Sodium Chloride 0.45% 1,000 ML IV SCH (08:56)
[2019-09-17] MEDS ORDERED: Saccharomyces boulardii 250 MG CAP PO SCH (09:00)
[2019-09-17] MEDS ORDERED: Amoxicillin/Potassium Clav 500 MG TAB PO SCH (09:00)
[2019-09-17 09:35] LABS: ALT (SGPT) 99 U/L (8-55); AST (SGOT) 27 U/L (5-34); Albumin 2.9 g/dL (3.4-4.8); Alkaline Phosphatase 157 U/L (40-110); Anion Gap 11 mmol/L (10-20); BUN (Urea Nitrogen) 14 mg/dL (8.4-25.7); Bilirubin, Total 0.5 mg/dL (0.2-1.2); Calc. Creatinine Clearance 76 mL/min (70-130); Calcium 7.7 mg/dL (7.8-10.44); Carbon Dioxide 22 mmol/L (23-31); Chloride 110 mmol/L (98-107); Estimated GFR-MDRD 83; Globulin 2.2 g/dL (2.4-3.5); Glucose 175 mg/dL (83-110); Lipase 54 U/L (8-78); Potassium 3.6 mmol/L (3.5-5.1); Protein, Total 5.1 g/dL (5.8-8.1); Sodium 139 mmol/L (136-145)
== END 2019-09-17 11:45 | disposition home health service (06) | DRG 391 ==
LOC: ERS 22:59 → T4-B 09-14 00:16
PROVIDERS: ADMIT Emergency Medicine; ATTEND Emergency Medicine
PROC: 0DB78ZX Excision of Stomach, Pylorus, Via Natural or Artificial Opening Endoscopic, Diagnostic (ICD-10-PCS; principal; 2019-09-16)
DX: K29.70 Gastritis, unspecified, without bleeding (principal); G92 Toxic encephalopathy; E87.2 Acidosis; I25.10 Atherosclerotic heart disease of native coronary artery without angina pectoris; I12.9 Hypertensive chronic kidney disease with stage 1 through stage 4 chronic kidney disease, or unspecified chronic kidney disease; E11.22 Type 2 diabetes mellitus with diabetic chronic kidney disease; E03.9 Hypothyroidism, unspecified; J44.9 Chronic obstructive pulmonary disease, unspecified; E78.5 Hyperlipidemia, unspecified; N18.2 Chronic kidney disease, stage 2 (mild); E83.42 Hypomagnesemia; D69.6 Thrombocytopenia, unspecified; F17.290 Nicotine dependence, other tobacco product, uncomplicated; F03.90 Unspecified dementia, unspecified severity, without behavioral disturbance, psychotic disturbance, mood disturbance, and anxiety; R94.5 Abnormal results of liver function studies; Z79.4 Long term (current) use of insulin; Z95.0 Presence of cardiac pacemaker
CPT/HCPCS: 36415; 36416; 74170; 76705; 80053; 83690; 83735; 84100; 85025; 88305; 88312; 96374; C9113; J1815; J2543; J2704; J3475; J3490; J7050; Q9967

== ENCOUNTER 2020-03-12 20:12 | Inpatient (IN) | payer MEDICARE, BC, OTHER ==
[2020-03-12 20:54] LABS: Bilirubin Negative (Negative); Blood, Urine Negative (Negative); Clarity Clear (Clear); Glucose, Urine (Dipstick) Greater than 1000 mg/dL (Negative); Ketone, Urine Negative (Negative); Leukocyte Negative Leu/uL (Negative); Nitrite Negative (Negative); Protein, Urine (Dipstick) 10 mg/dL (Neg-Trace); Specific Gravity, Urine 1.021 (1.002-1.036); Urobilinogen Normal mg/dL (Less than 2); pH, Urine 6.5 (5.0-9.0)
--- NOTE | 2020-03-12 21:40 | RAD ---
PORTABLE CHEST: History: Hypertension. Altered mental status. Comparison: 09-13-2019 FINDINGS: Heart size is within normal limits for portable technique with a pacemaker present. Increased density in the right base with some blunting to the right costophrenic angle suggests effusion with associat ed atelectasis. IMPRESSION: Increased density in the right base which appears to be related to small right pleural effusion. POS: OFF
[2020-03-12 21:42] LABS: Hemoglobin 11.7 g/dL (14.0-18.0); Mean Corpuscular HGB CONC 32.9 g/dL (32.0-36.0); Mean Corpuscular Hemoglobin 29.2 pg (27.0-31.0); Mean Corpuscular Volume 88.9 fL (78.0-98.0); RBC Distribution Width 14.4 % (11.5-14.5); Red Blood Cell (RBC) Count 4.01 mill/uL (4.70-6.10); White Blood Cell (WBC) Count 3.7 thou/uL (4.8-10.8)
[2020-03-12 21:56] LABS: #Eosinphils 0.1 thou/uL (0.0-0.7); #Lymphocytes 0.8 thou/uL (1.20-3.40); #Monocytes 0.2 thou/uL (0.11-0.59); #Neutrophils 2.6 thou/uL (1.40-6.50); %Basophils 0.5 % (0.0-1.0); %Eosinophils 2.5 % (0.0-10.0); %Lymphocytes 21.2 % (21.0-51.0); %Monocytes 6.5 % (0.0-10.0); %Neutrophils 69.3 % (42.0-75.0); ALT (SGPT) 11 U/L (8-55); AST (SGOT) 18 U/L (5-34); Albumin 3.9 g/dL (3.4-4.8); Alkaline Phosphatase 80 U/L (40-110); Anion Gap 13 mmol/L (10-20); BUN (Urea Nitrogen) 25 mg/dL (8.4-25.7); Bilirubin, Total 0.4 mg/dL (0.2-1.2); Calc. Creatinine Clearance 0 mL/min (70-130); Calcium 8.7 mg/dL (7.8-10.44); Carbon Dioxide 24 mmol/L (23-31); Chloride 107 mmol/L (98-107); Estimated GFR-MDRD 62; Globulin 2.7 g/dL (2.4-3.5); Glucose 319 mg/dL (83-110); Magnesium 1.3 mg/dL (1.6-2.6); Mean Platelet Volume 10.2 fL (7.4-10.4); Platelet Count 97 thou/uL (130-400); Platelet Morphology Comment Appears Decreased; Potassium 4.6 mmol/L (3.5-5.1); Protein, Total 6.6 g/dL (5.8-8.1); Sodium 139 mmol/L (136-145)
[2020-03-12] MEDS ORDERED: Magnesium 2 GM/50 ML BAG (IN WATER) ONE (22:22)
[2020-03-12] MEDS ORDERED: Labetalol HCl 100 MG/20 ML VIAL ONE (22:22)
[2020-03-13] MEDS ORDERED: Dextrose 50% Abboject 50 ML SYRINGE SLOW IVP PRN (01:43)
[2020-03-13] MEDS ORDERED: Dextrose 5% in Water 1,000 ML IV PRN (01:43)
[2020-03-13] MEDS ORDERED: Sodium Chloride 0.9% 1,000 ML IV SCH (01:45)
--- NOTE | 2020-03-13 02:00 | PDOC.HHP ---
Hospitalist HPI - History of Present Illness Confusion History of Present Illness: 79-year-old gentleman with a history of hypertension and diabetes mellitus was brought to the emergency department due to episodes of confusion. Patient reports intermittent episodes of confusion, which is worse at night, poor sleep and forgetfulness. He states that his symptoms have been present for over a year now. He was hospitalized in August 2019 for similar symptoms. Patient was brought to the emergency department by his daughter due to increased confusion today. Abnormal findings in the ED include hyperglycemia with blood glucose in the 300s. Patient also noted to be severely hypertensive with a systolic blood pressure up to 231. He has significant glycosuria but no ketonuria. UA shows no evidence of UTI. Patient may have waxing and waning delirium which could be related to severe hypertension or hyperglycemia. He stated he is scheduled to see a neurologist for evaluation for dementia. He is hospitalized for further evaluation and management. ED Course: He was given IV labetalol for severe blood pressure. Also given magnesium sulfate for hypomagnesemia. Hospitalist ROS - Review of Systems Other: Patient denied any fever or chills, no dysuria, no urinary retention. Except as documented, all other systems reviewed and negative. - Medication Medications: Medication Instructions Recorded Confirmed Type Levothyroxine Sodium 125 mcg PO DAILY 09/14/19 03/13/20 History Lisinopril 10 mg PO DAILY 09/14/19 03/13/20 History metFORMIN HCl 500 mg PO BID-WM 09/14/19 03/13/20 History Atorvastatin Calcium [Lipitor] 10 mg PO DAILY 03/13/20 03/13/20 History Insulin Glargine [Lantus] 11 units SC QAM 03/13/20 03/13/20 History Insulin Regular, Human [Novolin R] 5 unit SQ BID 03/13/20 03/13/20 History Magnesium Chloride [Slow-Mag] 1 tab PO DAILY 03/13/20 03/13/20 History Hospitalist History - Past Medical History Other Medical History: Hypertension, diabetes, coronary artery disease, hypothyroidism, COPD, hyperlipidemia. - Past Surgical History Other Surgical History: Pacemaker placement. - Family History Family History: reports: diabetes mellitus (Mother) - Social History Smoking Status: Current every day smoker (pipe) Alcohol: reports: None Drugs: reports: none Living Situation: Alone (Family lives close by) - Exam General Appearance: NAD Eye: PERRL, anicteric sclera ENT: normocephalic atraumatic, no oropharyngeal lesions, moist mucosa Neck: supple, symmetric, no JVD, no thyromegaly Heart: RRR, no murmur, no rubs, diminshed peripheral pulses (Dorsalis pedis- bilateral.) Respiratory: CTAB, no wheezes, no rales, no ronchi Gastrointestinal: soft, non-tender, non-distended, normal bowel sounds Extremities: no cyanosis, no edema Skin: normal turgor, no rashes Neurological: cranial nerve grossly intact, no weakness, no focal deficits Hospitalist Results - Labs Result Diagrams: 03/13/20 03:42 03/13/20 03:42 Lab results: WBC 3.7 thou/uL (4.8-10.8) L 03/12/20 21:21 Hgb 11.7 g/dL (14.0-18.0) L 03/12/20 21:21 Hct 35.6 % (42.0-52.0) L 03/12/20 21:21 MCV 88.9 fL (78.0-98.0) 03/12/20 21:21 Plt Count 97 thou/uL (130-400) L 03/12/20 21:21 Neutrophils % 69.3 % (42.0-75.0) 03/12/20 21:21 Sodium 139 mmol/L (136-145) 03/12/20 21:21 Potassium 4.6 mmol/L (3.5-5.1) 03/12/20 21:21 Chloride 107 mmol/L (98-107) 03/12/20 21:21 Carbon Dioxide 24 mmol/L (23-31) 03/12/20 21:21 BUN 25 mg/dL (8.4-25.7) 03/12/20 21:21 Creatinine 1.15 mg/dL (0.7-1.3) 03/12/20 21:21 Glucose 319 mg/dL (83-110) H 03/12/20 21:21 Calcium 8.7 mg/dL (7.8-10.44) 03/12/20 21:21 Total Bilirubin 0.4 mg/dL (0.2-1.2) 03/12/20 21:21 AST 18 U/L (5-34) 03/12/20 21:21 ALT 11 U/L (8-55) 03/12/20 21:21 Alkaline Phosphatase 80 U/L (40-110) 03/12/20 21:21 Troponin I 0.016 ng/mL (< 0.028) 03/12/20 21:21 B-Natriuretic Peptide 283.3 pg/mL (0-100) H 03/12/20 21:21 Serum Total Protein 6.6 g/dL (5.8-8.1) 03/12/20 21:21 Albumin 3.9 g/dL (3.4-4.8) 03/12/20 21:21 Urine Ketones Negative mg/dL (Negative) 03/12/20 20: Urine Blood Negative (Negative) 03/12/20 20: Urine Nitrite Negative (Negative) 03/12/20 20:33 Ur Leukocyte Esterase Negative Lacy/uL (Negative) 03/12/20 20:33 - EKG Interpretation EKG: Paced rhythm. - Radiology Interpretation Chest x-ray Status: report reviewed by me (Increased density in the right base of the lung which may suggest small pleural effusion.) Hospitalist H&P A/P - Problem (1) Metabolic encephalopathy Code(s): G93.41 - METABOLIC ENCEPHALOPATHY Status: Acute (2) Hypertensive encephalopathy Code(s): I67.4 - HYPERTENSIVE ENCEPHALOPATHY Status: Acute (3) Type 2 diabetes mellitus with hyperglycemia Code(s): E11.65 - TYPE 2 DIABETES MELLITUS WITH HYPERGLYCEMIA Status: Acute (4) Hypothyroidism Code(s): E03.9 - HYPOTHYROIDISM, UNSPECIFIED Status: Acute - Plan Plan: Placed under observation. Telemetry Aggressive blood pressure treatment with IV labetalol. Continue home dose lisinopril. Low-dose amlodipine added. Monitor blood pressure. Aggressive blood sugar control with low-dose Lantus insulin and insulin sliding scale. Check hemoglobin A1c. IV hydration. Occupational Therapy to evaluate IADLs.
--- NOTE | 2020-03-13 02:17 | PDOC.FMACP ---
Advance Care Planning - Problem (1) Metabolic encephalopathy Status: Acute Code(s): G93.41 - METABOLIC ENCEPHALOPATHY (2) Hypertensive encephalopathy Status: Acute Code(s): I67.4 - HYPERTENSIVE ENCEPHALOPATHY (3) Type 2 diabetes mellitus with hyperglycemia Status: Acute Code(s): E11.65 - TYPE 2 DIABETES MELLITUS WITH HYPERGLYCEMIA (4) Hypothyroidism Status: Acute Code(s): E03.9 - HYPOTHYROIDISM, UNSPECIFIED - Note Summary: Advanced Care Planning was discussed. The diagnosis, prognosis and goals of care were discussed. All questions were answered. The Palliative Care Team will be engaged to assist with completion of any outstanding forms that are needed. Patient wishes to be full code. His daughter is the medical decision maker. Patient states he has completed a living will. Time Spent (mins): 18
[2020-03-13] MEDS: Labetalol HCl 100 MG/20 ML VIAL SLOW IVP PRN ×2 (02:54→21:33)
[2020-03-13 03:18] VITALS: BMI 22.4
[2020-03-13 04:12] LABS: #Basophils 0.1 thou/uL (0.0-0.2); #Eosinphils 0.1 thou/uL (0.0-0.7); #Lymphocytes 0.8 thou/uL (1.20-3.40); #Monocytes 0.3 thou/uL (0.11-0.59); #Neutrophils 2.6 thou/uL (1.40-6.50); %Basophils 1.5 % (0.0-1.0); %Eosinophils 2.7 % (0.0-10.0); %Lymphocytes 21.2 % (21.0-51.0); %Monocytes 8.5 % (0.0-10.0); %Neutrophils 66.1 % (42.0-75.0); Hemoglobin 10.3 g/dL (14.0-18.0); Mean Corpuscular HGB CONC 32.1 g/dL (32.0-36.0); Mean Corpuscular Hemoglobin 28.6 pg (27.0-31.0); Mean Corpuscular Volume 89.1 fL (78.0-98.0); Mean Platelet Volume 9.5 fL (7.4-10.4); Platelet Count 98 thou/uL (130-400); RBC Distribution Width 14.3 % (11.5-14.5)
[2020-03-13 04:30] LABS: Anion Gap 12 mmol/L (10-20); BUN (Urea Nitrogen) 21 mg/dL (8.4-25.7); Calc. Creatinine Clearance 58 mL/min (70-130); Calcium 8.1 mg/dL (7.8-10.44); Carbon Dioxide 25 mmol/L (23-31); Chloride 106 mmol/L (98-107); Estimated GFR-MDRD 77; Glucose 246 mg/dL (83-110); Potassium 3.7 mmol/L (3.5-5.1); Sodium 139 mmol/L (136-145)
[2020-03-13] MEDS: HumaLOG 300 UNITS/3 ML VIAL SC PRN ×2 (06:40→10:48)
--- NOTE | 2020-03-13 07:23 | CT ---
CT OF BRAIN PERFORMED WITHOUT CONTRAST ENHANCEMENT: Date: 03/12/2020 HISTORY: Altered mental status. COMPARISON: 09/13/2019 exam. FINDINGS: There is generalized ventricular and sulcal prominence. Chronic white matter change is noted. There a re no signs of intracerebral hemorrhage or extra-axial fluid collections. The mastoid air cells and v isualized sinuses are clear. IMPRESSION: No acute intracranial abnormalities. POS: OFF
[2020-03-13] MEDS ORDERED: Amlodipine 5 MG TAB PO SCH ×2 (09:00→17:45)
[2020-03-13] MEDS ORDERED: FLU VACC QS2020-21(65YR UP)/PF 240 MCG/0.7 ML SYRINGE IM ONE (09:00)
[2020-03-13] MEDS: Enoxaparin Sodium 40 MG/0.4 ML SYRINGE SC SCH (09:05)
[2020-03-13] MEDS: Insulin Glargine 10 UNITS in Pre-Filled Syringe 1 EACH SC SCH (10:48)
[2020-03-13 12:06] LABS: SARS-CoV-2 MS2 Positive; SARS-CoV-2 N Gene Negative; SARS-CoV-2 S Gene Negative; SARS-CoV-2 by NAA Not Detected (NotDetected); SARS-CoV-2 orf1ab Negative
--- NOTE | 2020-03-13 17:27 | PDOC.EVN ---
Event Note - Event Note Event Note: The patient states he feels better today . He reports feeling confused yesterday, but had no other symptoms other than a mild headache. He denies weakness or numbness in arms or legs SPoke to daughter, she states patient does not walk much and uses a wheelchair. Daughter states patient refuses to use his right leg for unclear reason Daughter states he cries often at home GEneral: BP high this am 190 systolic CVS: RRR, no murmurs, rubs, gallops Lungs: CTAB Abdomen: + BS, soft, nontender, nondistended Extremities: no edema Neuro: patient moves all four extremities. He has 5/5 strength in upper and lower extremities. Intact sensation in all four extremities CT brain: unremarkable Chest Xray: normal This is a 79 year old male with past medical history of hypertension, hypothyroid, diabetes presenting to ER for intermittent episodes of confusion and forgetfulness #Hypertensive urgency - blood pressure high this am. Improved to 170 with amlodipine 5 mg. Will give another 5 mg and increase to 10 mg daily -We will add hydralazine 25 mg p.o. 3 times daily as needed for blood pressure greater than 180 #Acute encephalopathy - intermittent, possibly related to hypertension vs underlying dementia or pseudodementia #Agitation - neuro exam is normal . CT head, chest Xray, UA are normal - will add seroquel prn for agitation - PT has evaluated patient and recommended rehab. Patient refusing rehab, but family wants patient to go to rehab. - consider MRI brain Diabetes - continue insulin sliding scale. A1C is 10 Hypothyroidism - TSH high at 5. T4 normal, will monitor - continue levothyroxine Macrocytic anemia - check folate/B12 in am . TSH high but free T4 normal
[2020-03-13] MEDS ORDERED: hydrALAZINE 25 MG TAB PO PRN (17:33)
[2020-03-14] MEDS ORDERED: Amlodipine 10 MG TAB PO SCH (09:00)
[2020-03-14] MEDS: Insulin Glargine 10 UNITS in Pre-Filled Syringe 1 EACH SC SCH (09:35)
[2020-03-14] MEDS: Enoxaparin Sodium 40 MG/0.4 ML SYRINGE SC SCH (10:18)
[2020-03-14] MEDS: HumaLOG 300 UNITS/3 ML VIAL SC PRN (11:04)
[2020-03-14] MEDS ORDERED: Cyanocobalamin (Vitamin B-12) 1,000 MCG TAB PO SCH (13:45)
[2020-03-14 15:50] VITALS: BP 151/72; TEMP 98.4
--- NOTE | 2020-03-15 01:10 | DIS ---
DATE OF ADMISSION: 03/13/2020 DATE OF DISCHARGE: 03/14/2020 DISCHARGE DIAGNOSES: 1. Acute encephalopathy possibly secondary to uncontrolled hypertension. 2. Agitation. 3. Borderline B12 deficiency. 4. Diabetes. 5. Hypothyroidism. 6. Anemia. CONSULTATIONS: None. BRIEF HISTORY OF PRESENT ILLNESS: This is a 79-year-old male with a history of hypertension, diabetes who presented to the emergency room due to episodes of confusion. The patient has had episodes of confusion over the past year. His symptoms seem to be worse at night. When he came to the emergency room, his blood glucose was in the 300s. He was also hypertensive with a blood pressure of up to 231 systolic. UA showed no evidence of UTI. Chest x-ray was unremarkable. The patient was admitted for further workup. HOSPITAL COURSE: 1. Acute encephalopathy possibly secondary to hyperglycemia versus hypertension: CT head was normal. The patient was started on sliding scale insulin with his blood sugars controlled to the 130s. HbA1C was 10.0. He was started on amlodipine 10 mg while he was in the hospital for high blood pressure. His blood pressures were controlled with improvement in his blood pressure from 180s to 150s. He also takes lisinopril at home, and this will be resumed on discharge as well. The patient was oriented x3 at the time of discharge. He does have episodes of delirium at night, which was treated with Seroquel as needed for agitation. Consider outpatient dementia workup if this problem persists. 2. Diabetes: The patient's hemoglobin A1c was 10. He was resumed on his outpatient metformin and his Lantus. The patient's daughter states that she gives him all of his medications. I would defer to PCP with regard to additional diabetes medicines. 3. Hypothyroidism: Patient's TSH was 5. His T4 was normal. He was resumed on his levothyroxine. Recommend repeating TFTs as an outpatient for further adjustment. 4. Anemia: The patient's hemoglobin was 10.3. His B12 level was borderline low at 235. He is discharged with B12 supplementation. DISCHARGE PHYSICAL EXAMINATION: VITAL SIGNS: Temperature 98.4, heart rate 71, respiratory rate 16, O2 saturation 96% on room air, blood pressure 151/72. GENERAL: The patient is alert, awake, oriented x3. CVS: Regular rate with rhythm with no murmurs, rubs, or gallops. LUNGS: Clear to auscultation bilaterally. ABDOMEN: Positive bowel sounds, soft, nontender, nondistended. EXTREMITIES: No edema. NEUROLOGIC: Patient's cranial nerves 2 through 12 are intact. He is moving all 4 extremities. He has 5/5 strength in all 4 extremities. PERTINENT LABORATORY DATA: 1. CBC on 03/13: White count 4.0, hemoglobin 10.3, hematocrit 32.1, platelet count 98. 2. BMP 03/13: Normal. 3. LFTs 03/12: Normal. 4. Troponin I: 0.016. 5. BNP 03/12: 283. 6. TSH: 5.1. 7. Free T4: 1.12. 8. UA 03/10: Greater than 1000 glucose. Otherwise, unremarkable. 9. Beta hydroxybutyrate 03/12: 0.15. 10. COVID PCR 03/13: Negative. 11. CT brain 03/12: No acute intracranial abnormalities. 12. Chest x-ray 03/12: Increased density in the right base, which may be from a small right pleural effusion. DISCHARGE CONDITION: Stable. ACTIVITY: As tolerated. DIET: Diabetic and heart-healthy diet. DISCHARGE MEDICATIONS: New prescriptions: 1. Hydralazine 25 mg p.o. q.h.s. p.r.n. for SBP greater than 180. 2. Amlodipine 10 mg p.o. daily. 3. Seroquel 12.5 mg p.o. q.h.s. p.r.n. 4. Vitamin B12 1000 mcg p.o. daily. All other home medications were resumed. Please refer to discharge work sheet. DISCHARGE INSTRUCTIONS: Consider repeat chest x-ray as an outpatient in a week for followup of right pleural effusion. Consider outpatient dementia workup if he continued to have these episodes. Consider adjustment of thyroid medicine. Also considering adding additional diabetic medicine since his hemoglobin A1c was 10. Job ID: [id number] [facility]
[2020-03-15] MEDS ORDERED: Cyanocobalamin (Vitamin B-12) 1,000 MCG TAB PO SCH (09:00)
== END 2020-03-14 20:20 | DRG 77 ==
LOC: ERS 20:12 → 2SE 03-13 01:44 → OBSVTOIN 03-13 17:28
PROVIDERS: ADMIT Internal Medicine; ATTEND Internal Medicine
DX: I67.4 Hypertensive encephalopathy (principal); G93.41 Metabolic encephalopathy; E11.65 Type 2 diabetes mellitus with hyperglycemia; I10 Essential (primary) hypertension; E53.8 Deficiency of other specified B group vitamins; E03.9 Hypothyroidism, unspecified; Z20.828 Contact with and (suspected) exposure to other viral communicable diseases; I25.10 Atherosclerotic heart disease of native coronary artery without angina pectoris; I16.0 Hypertensive urgency; D53.9 Nutritional anemia, unspecified; F17.210 Nicotine dependence, cigarettes, uncomplicated; Z95.0 Presence of cardiac pacemaker; Z23 Encounter for immunization
CPT/HCPCS: 36415; 36416; 70450; 71045; 80048; 80053; 81003; 82010; 82607; 82746; 83036; 83735; 83880; 84439; 84443; 84484; 85025; 87040; 87086; 87635; 90471; 90662; 93005; 96365; 96372; 96375; G0008; G0378; J1650; J1815; J3475; U0003

== ENCOUNTER 2020-07-06 09:50 | Inpatient (IN) | payer MEDICARE, BC ==
[2020-07-06 10:35] LABS: #Eosinphils 0.1 thou/uL (0.0-0.7); #Lymphocytes 0.7 thou/uL (1.20-3.40); #Monocytes 0.2 thou/uL (0.11-0.59); #Neutrophils 4.4 thou/uL (1.40-6.50); %Basophils 0.8 % (0.0-1.0); %Eosinophils 1.2 % (0.0-10.0); %Lymphocytes 12.6 % (21.0-51.0); %Neutrophils 82.3 % (42.0-75.0); Hemoglobin 11.5 g/dL (14.0-18.0); Mean Corpuscular HGB CONC 30.8 g/dL (32.0-36.0); Mean Corpuscular Hemoglobin 28.3 pg (27.0-31.0); Mean Platelet Volume 8.4 fL (7.4-10.4); Platelet Count 124 thou/uL (130-400); RBC Distribution Width 13.2 % (11.5-14.5); Red Blood Cell (RBC) Count 4.05 mill/uL (4.70-6.10); White Blood Cell (WBC) Count 5.4 thou/uL (4.8-10.8)
[2020-07-06 10:51] LABS: Base Excess-Venous -18.4 mmol/L (-2.0 to 3.0); Bicarbonate (HCO3v) 10.3 mmol/L (22.0-28.0); CO2 Tension (PvCO2) 33.6 mmHg (40.0-50.0); Calcium, Ionized 0.98 mmol/L (1.15-1.33); Chloride 107 mmol/L (98-107); Hemoglobin - Calc 12.6 g/dL (14.0-18.0); Sodium 127 mmol/L (138-145); T. Carbon Dioxide 11.3 mmol/L (22.0-28.0); vO2 Saturation-calc 61.8 % (60.0-85.0)
[2020-07-06 10:52] LABS: Magnesium 1.5 mg/dL (1.6-2.6); Phosphorus 4.5 mg/dL (2.3-4.7)
[2020-07-06 11:03] LABS: ALT (SGPT) 15 U/L (8-55); AST (SGOT) 14 U/L (5-34); Albumin 3.9 g/dL (3.4-4.8); Alkaline Phosphatase 83 U/L (40-110); Anion Gap 30 mmol/L (10-20); BUN (Urea Nitrogen) 34 mg/dL (8.4-25.7); Bilirubin, Total 0.3 mg/dL (0.2-1.2); Calc. Creatinine Clearance 0 mL/min (70-130); Calcium 8.3 mg/dL (7.8-10.44); Chloride 102 mmol/L (98-107); Globulin 2.5 g/dL (2.4-3.5); Potassium 5.7 mmol/L (3.5-5.1); Protein, Total 6.4 g/dL (5.8-8.1); Sodium 135 mmol/L (136-145)
[2020-07-06] MEDS ORDERED: INSULIN REGULAR IN 0.9 % NACL 100 UNIT/100 ML BAG ONE ×2 (11:12→23:08)
[2020-07-06] MEDS ORDERED: Ondansetron ODT 4 MG TAB PO PRN (11:36)
[2020-07-06] MEDS ORDERED: Acetaminophen 325 MG TAB PO PRN (11:36)
[2020-07-06] MEDS ORDERED: Ondansetron PF 4 MG/2 ML Vial IVP PRN (11:36)
[2020-07-06 11:37] LABS: Bilirubin Negative (Negative); Blood, Urine Negative (Negative); Clarity Clear (Clear); Glucose, Urine (Dipstick) Greater than 1000 mg/dL (Negative); Ketone, Urine 80 mg/dL (Negative); Leukocyte Negative Leu/uL (Negative); Nitrite Negative (Negative); Protein, Urine (Dipstick) Negative (Neg-Trace); Specific Gravity, Urine 1.025 (1.002-1.036); Urobilinogen Normal mg/dL (Less than 2)
--- NOTE | 2020-07-06 11:38 | PDOC.HHP ---
Hospitalist HPI high blood sugar History of Present Illness: This is a 80 year old male with past medical history of diabetes, hypertension, hypothyroidism, early dementia who presented to the hospital with altered mental status. The daughter stated he was sitting in a chair this morning and "looked like a lump". She asked him what's wrong, and he said he just didn't feel good. She checked his blood sugar, and it stated "high," but wasn't able to register a number. According to the daughter, the patient's blood sugar has been high for the past two days, ranging from 300-400 and he has been very agitated. He refused to see the doctor two days ago, and stated he would only go if his doctor suggested that he did. Today she lied, and told him that his doctor suggested he go to the ER and brought him here. EMS found him moaning and fingerstick was > 500. The patient was recently discharged from [facility] last Thursday for DKA. He was discharged on lantus 5 units qam and a sliding scale (which I can't find on file) which he takes before breakfast. He was also discharged with a sliding scale, but I am unable to find the paper copy. The patient skips lunch. For breakfast, he typically eats sausage, leigh and eggs. For dinner he eats 1/4 baked potato and veggies. Last night he ate a little bit of broccoli and some beef chips. There is a home health nurse who watches him self inject his insulin, so she does not suspect non-compliance The patient reports urinating 10 times a day, denies dysuria, abdominal pain, nausea or vomiting. He denies fevers, chills, cough or shortness of breath. ED Course: When the patient presented to the ER, his vitals were normal. Initial blood sugar was 651. After 2 L of fluid it came down to 567. VBG showed pH 7.0, pCO2 33. BHB was 8.95. Sodium was 127, potassium 6.0, bicarb 9, anion gap 30. The patient was started on an insulin drip. EKG showed paced rhythm. Chest Xray showed small right effusion. CT head was negative. Allergies/Adverse Reactions: Allergy/AdvReac Type Severity Reaction Status Date / Time No Known Allergies Allergy Verified 06/22/20 16:50 Home Medications: Medication Instructions Recorded Confirmed Type Humulin R 0 unit SC ASDIR PRN 06/22/20 06/22/20 History Amlodipine [Norvasc] 10 mg PO DAILY #30 tab 06/29/20 Rx Atorvastatin Calcium [Lipitor] 10 mg PO DAILY #30 tab 06/29/20 Rx Cholecalciferol [Vitamin D3] 1,000 units PO DAILY tab 06/29/20 Rx Ferrous Gluconate [Fergon] 324 mg PO QAM-WM #30 tab 06/29/20 Rx Insulin Glargine [Lantus] 5 units SC QAM vial 06/29/20 Rx Insulin Regular [HumuLIN R Vial] 0 units SC .MODERATE SLIDING SC 06/29/20 Rx PRN vial Levothyroxine Sodium [Synthroid] 125 mcg PO 0600 #30 tab 06/29/20 Rx Lisinopril [Zestril] 10 mg PO DAILY #30 tab 06/29/20 Rx QUEtiapine Fumarate [SEROquel] 12.5 mg PO HS PRN #14 tab 06/29/20 Rx hydrALAZINE [Apresoline] 25 mg PO BID #60 tab 06/29/20 Rx Comments: Lisinopril 10 mg Atorvastatin1 0 mg Levothyroxine 125 mcg Amlodipine 10 mg Ferrous gluconate 324 mg Past History: PMHx: Diabetes type II Hypertension Hypothyroidism Early dementia PSHx: pacemaker FHx: parents both , dad of heart attack . Mom had diabetes Social: denies alcohol use. Smokes excessive amounts of pipe tobacco. Denies illicit drugs. Lives with daughter Hospitalist IBRAHIMA FITZPATRICK Constitutional: denies: fever, chills ENT: denies: ear pain, ear discharge Respiratory: denies: cough, dry, shortness of breath Cardiovascular: denies: chest pain, palpitations, orthopnea Gastrointestinal: denies: nausea, vomiting, abdominal pain, diarrhea Genitourinary: denies: dysuria, frequency Musculoskeletal: denies: neck pain, shoulder pain Skin: denies: rash, lesions Neurological: denies: weakness, numbness Hospitalist Exam General Appearance: NAD, awake alert Eye: PERRL, anicteric sclera ENT: normocephalic atraumatic, no oropharyngeal lesions ENT - other findings: poor dentition Neck: no JVD Heart: RRR, no murmur, no gallops, no rubs Respiratory: CTAB, no wheezes, no rales, no ronchi Gastrointestinal: soft, non-tender, non-distended, normal bowel sounds Extremities: no cyanosis, no clubbing, no edema Skin: normal turgor, no lesions, no rashes Neurological: cranial nerve grossly intact, normal sensation to touch, no weakness Musculoskeletal: normal tone, normal strength, no muscle wasting Psychiatric: normal affect, normal behavior, A&O x 3 Psychiatric - other findings: states that it is July 01 , [facility] Diagrams: 07/06/20 10:24 07/06/20 10:24 Lab results: Laboratory Last Values WBC 5.4 thou/uL (4.8-10.8) 07/06/20 10:24 RBC 4.05 mill/uL (4.70-6.10) L 07/06/20 10:24 Hgb 11.5 g/dL (14.0-18.0) L 07/06/20 10:24 Hct 37.3 % (42.0-52.0) L 07/06/20 10:24 POC Venous Hct 37.0 % (42.0-52.0) L 07/06/20 10:45 MCV 92.0 fL (78.0-98.0) 07/06/20 10:24 MCH 28.3 pg (27.0-31.0) 07/06/20 10:24 MCHC 30.8 g/dL (32.0-36.0) L 07/06/20 10:24 RDW 13.2 % (11.5-14.5) 07/06/20 10:24 Plt Count 124 thou/uL (130-400) L 07/06/20 10:24 MPV 8.4 fL (7.4-10.4) 07/06/20 10:24 Neutrophils % 82.3 % (42.0-75.0) H 07/06/20 10:24 Lymphocytes % 12.6 % (21.0-51.0) L 07/06/20 10:24 Monocytes % 3.0 % (0.0-10.0) 07/06/20 10:24 Eosinophils % 1.2 % (0.0-10.0) 07/06/20 10:24 Basophils % 0.8 % (0.0-1.0) 07/06/20 10:24 Neutrophils # 4.4 thou/uL (1.40-6.50) 07/06/20 10:24 Lymphocytes # 0.7 thou/uL (1.20-3.40) L 07/06/20 10:24 Monocytes # 0.2 thou/uL (0.11-0.59) 07/06/20 10:24 Eosinophils # 0.1 thou/uL (0.0-0.7) 07/06/20 10:24 Basophils # 0.0 thou/uL (0.0-0.2) 07/06/20 10:24 POC Bicarbonate Calc 10.3 mmol/L (22.0-28.0) L* 07/06/20 10:45 POC VBG pH 7.096 (7.320-7.430) L* 07/06/20 10:45 VBG pCO2 33.6 mmHg (40.0-50.0) L 07/06/20 10:45 VBG pO2 43.0 mmHg (35.0-45.0) 07/06/20 10:45 POC VBG CO2 (Calc) 11.3 mmol/L (22.0-28.0) L 07/06/20 10:45 POC VBG O2 Sat (Calc) 61.8 % (60.0-85.0) 07/06/20 10:45 POC VBG Base Excess -18.4 mmol/L (-2.0 to 3.0) L 07/06/20 10:45 POC VBG Hemoglobin Calc 12.6 g/dL (14.0-18.0) L 07/06/20 10:45 POC Venous Sodium 127 mmol/L (138-145) L 07/06/20 10:45 Sodium 135 mmol/L (136-145) L 07/06/20 10:24 POC Venous Potassium 6.0 mmol/L (3.5-5.1) H 07/06/20 10:45 Potassium 5.7 mmol/L (3.5-5.1) H 07/06/20 10:24 POC Venous Chloride 107 mmol/L (98-107) 07/06/20 10:45 Chloride 102 mmol/L (98-107) 07/06/20 10:24 Anion Gap 30 mmol/L (10-20) H 07/06/20 10:24 POC Judson Anion Gap Calc 16 mmol/L (10-20) 07/06/20 10:45 BUN 34 mg/dL (8.4-25.7) H 07/06/20 10:24 Creatinine 1.72 mg/dL (0.7-1.3) H 07/06/20 10:24 Estimated GFR (MDRD) 39 07/06/20 10:24 Calcium 8.3 mg/dL (7.8-10.44) 07/06/20 10:24 POC Venous Ion Calcium 0.98 mmol/L (1.15-1.33) L 07/06/20 10:45 Phosphorus 4.5 mg/dL (2.3-4.7) 07/06/20 10:24 Magnesium 1.5 mg/dL (1.6-2.6) L 07/06/20 10:24 Total Bilirubin 0.3 mg/dL (0.2-1.2) 07/06/20 10:24 AST 14 U/L (5-34) 07/06/20 10:24 ALT 15 U/L (8-55) 07/06/20 10:24 Alkaline Phosphatase 83 U/L (40-110) 07/06/20 10:24 Troponin I 0.026 ng/mL (< 0.028) 07/06/20 10:24 Serum Total Protein 6.4 g/dL (5.8-8.1) 07/06/20 10:24 Albumin 3.9 g/dL (3.4-4.8) 07/06/20 10:24 Globulin 2.5 g/dL (2.4-3.5) 07/06/20 10:24 Albumin/Globulin Ratio 1.6 g/dL (1.2-2.2) 07/06/20 10:24 B-Hydroxybutyrate 8.95 mmol/L (0.02-0.27) H 07/06/20 10:24 Critical Chrissy Read Back Critical Value 07/06/20 10:45 Additional comment: EKG : paced rhythm Hospitalist H&P A/P Plan: This is a 80 year old male presenting with altered mental status, found to have blood sugar > 500, admitted for DKA #DKA #Acute encephalopathy- likely from DKA - presented with blood sugar > 500, VBG showed pH 7.0, anion gap 30, bicarb 9, BHB 8.95. Starting insulin drip. Admit to IMCU - BMP q4 hours, fingersticks q1 hours - starting normal saline - no signs of infection with normal UA and chest X ray just showing mild pleural effusion but no symptoms of pneumonia Hypothyroidism - continue levothyroxine Early dementia - CT head negative Hypertension - hold lisinopril for now and hydralazine
[2020-07-06 11:48] LABS: Carbon Dioxide 9 mmol/L (23-31); Glucose 651 mg/dL (83-110)
[2020-07-06] MEDS ORDERED: Sodium Chloride 0.9% 1,000 ML IV SCH (12:00)
[2020-07-06 13:28] LABS: SARS-CoV-2 NAA Rapid Test Not Detected (NotDetected)
[2020-07-06] MEDS: Sodium Chloride 0.9% 1,000 ML IV SCH ×2 (14:48→22:00)
[2020-07-06 16:28] LABS: Anion Gap 21 mmol/L (10-20); BUN (Urea Nitrogen) 31 mg/dL (8.4-25.7); Calc. Creatinine Clearance 0 mL/min (70-130); Calcium 8.1 mg/dL (7.8-10.44); Chloride 110 mmol/L (98-107); Glucose 351 mg/dL (83-110); Potassium 4.4 mmol/L (3.5-5.1); Sodium 136 mmol/L (136-145)
[2020-07-06 16:47] LABS: Carbon Dioxide 9 mmol/L (23-31)
[2020-07-06] MEDS ORDERED: Dextrose 50% Abboject 50 ML SYRINGE SLOW IVP PRN (18:25)
[2020-07-06] MEDS ORDERED: ADD ELECTROLYTE REPLACEMENT SET TO PROFILE FS SCH (18:30)
[2020-07-06] MEDS ORDERED: HUMULIN R 100 UNITS in Sodium Chloride 0.9% 100 ML IVPB SCH (18:30)
[2020-07-06] MEDS ORDERED: Dextrose 5 %-0.45 % NaCl 1,000 ML IV PRN (18:30)
[2020-07-06] MEDS ORDERED: Dextrose 5% in Water 1,000 ML IV PRN (18:30)
[2020-07-06] MEDS ORDERED: Sodium Chloride 0.9% 1,000 ML IV PRN ×4 (18:30)
[2020-07-06] MEDS ORDERED: Insulin Regular 300 UNITS/3 ML VIAL IVP SCH (18:30)
[2020-07-06] MEDS ORDERED: NS 0.9% w/ 20 MEQ KCL 1,000 ML/1,000 ML BAG IV PRN ×2 (18:30)
[2020-07-06] MEDS ORDERED: D5 1/2 NS w/20 mEq KCL 1,000 ML IV PRN (18:30)
[2020-07-06] MEDS ORDERED: Famotidine/PF 20 mg/2ml Vial ONE (21:47)
[2020-07-06 21:52] LABS: Calcium 8.1 mg/dL (7.8-10.44); Chloride 111 mmol/L (98-107); Potassium 3.6 mmol/L (3.5-5.1); Sodium 140 mmol/L (136-145)
[2020-07-06 21:53] LABS: Glucose 117 mg/dL (83-110)
[2020-07-06 21:54] LABS: Anion Gap 13 mmol/L (10-20); Carbon Dioxide 20 mmol/L (23-31)
[2020-07-06] MEDS: Atorvastatin Calcium 10 MG TAB PO SCH (21:55)
[2020-07-06] MEDS: Famotidine/PF 20 mg/2ml Vial SLOW IVP SCH (21:55)
[2020-07-06 21:56] LABS: Calc. Creatinine Clearance 0 mL/min (70-130)
[2020-07-06 21:57] LABS: BUN (Urea Nitrogen) 25 mg/dL (8.4-25.7)
[2020-07-06] MEDS ORDERED: Potassium Chloride 20 MEQ TAB ONE (23:42)
[2020-07-07] MEDS: Levothyroxine Sodium 125 MCG TAB PO SCH (05:41)
[2020-07-07 05:46] LABS: #Eosinphils 0.2 thou/uL (0.0-0.7); #Lymphocytes 1.1 thou/uL (1.20-3.40); #Monocytes 0.5 thou/uL (0.11-0.59); #Neutrophils 3.9 thou/uL (1.40-6.50); %Basophils 0.5 % (0.0-1.0); %Eosinophils 3.1 % (0.0-10.0); %Lymphocytes 18.7 % (21.0-51.0); %Monocytes 9.3 % (0.0-10.0); %Neutrophils 68.4 % (42.0-75.0); Mean Corpuscular HGB CONC 32.1 g/dL (32.0-36.0); Mean Corpuscular Hemoglobin 28.3 pg (27.0-31.0); Mean Corpuscular Volume 88.3 fL (78.0-98.0); Mean Platelet Volume 8.2 fL (7.4-10.4); Platelet Count 131 thou/uL (130-400); RBC Distribution Width 13.2 % (11.5-14.5); Red Blood Cell (RBC) Count 3.89 mill/uL (4.70-6.10); White Blood Cell (WBC) Count 5.8 thou/uL (4.8-10.8)
[2020-07-07 06:05] LABS: Anion Gap 11 mmol/L (10-20); BUN (Urea Nitrogen) 20 mg/dL (8.4-25.7); Calc. Creatinine Clearance 0 mL/min (70-130); Calcium 7.6 mg/dL (7.8-10.44); Carbon Dioxide 16 mmol/L (23-31); Chloride 115 mmol/L (98-107); Glucose 101 mg/dL (83-110); Potassium 4.6 mmol/L (3.5-5.1); Sodium 137 mmol/L (136-145)
[2020-07-07] MEDS: Ferrous Gluconate 324 MG TAB PO SCH (07:47)
[2020-07-07] MEDS ORDERED: HumaLOG 300 UNITS/3 ML VIAL SC PRN ×2 (08:11)
[2020-07-07] MEDS ORDERED: Dextrose 5% in Water 1,000 ML IV PRN (08:11)
[2020-07-07] MEDS: Insulin Glargine 5 UNITS in Pre-Filled Syringe 1 EACH SC SCH (08:46)
--- NOTE | 2020-07-07 09:15 | PDOC.HOSPP ---
- Subjective Encounter Date: 07/07/20 Encounter Time: 09:06 Subjective: No overnight events. Patient up in bed eating breakfast. States he feels back to his usual self. Has no complaints at this time, other than he is hungry. AOx4. Denies chest pain, SOB, abdominal pain. Chart and medications reviewed. - Objective Result Diagrams: 07/07/20 05:34 07/07/20 05:34 Additional Labs: Accuchecks 07/07/20 07/07/20 07/07/20 08:35 06:43 05:38 POC Glucose 161 H 93 109 H 07/07/20 07/07/20 07/07/20 04:32 03:33 02:33 POC Glucose 116 H 129 H 140 H 07/07/20 07/07/20 07/06/20 01:19 00:02 23:02 POC Glucose 78 83 113 H 07/06/20 07/06/20 07/06/20 22:14 21:03 20:09 POC Glucose 116 H 135 H 178 H 07/06/20 07/06/20 07/06/20 18:58 17:46 16:46 POC Glucose 197 H 239 H 273 H 07/06/20 07/06/20 07/06/20 15:53 14:44 13:57 POC Glucose 325 H 356 H 409 H 07/06/20 12:37 POC Glucose 484 H Hospitalist ROS - Review of Systems Constitutional: denies: fever, chills, sweats, weakness, malaise, other Eyes: denies: pain, vision change, conjunctivae inflammation, eyelid inflammation, redness, other ENT: denies: ear pain, ear discharge, nose pain, nose discharge, nose congestion, mouth pain, mouth swelling, throat pain, throat swelling, other Respiratory: denies: cough, dry, shortness of breath, hemoptysis, SOB with excertion, pleuritic pain, sputum, wheezing, other Cardiovascular: denies: chest pain, palpitations, orthopnea, paroxysmal noc. dyspnea, edema, light headedness, other Gastrointestinal: denies: nausea, vomiting, abdominal pain, diarrhea, const ipation, melena, hematochezia, other Genitourinary: denies: dysuria, frequency, incontinence, hematuria, retention, other Musculoskeletal: denies: neck pain, shoulder pain, arm pain, back pain, hand pain, leg pain, foot pain, other Skin: denies: rash, lesions, naveed, bruising, other Neurological: denies: weakness, numbness, incoordination, change in speech, confusion, seizures, other - Medication Medications: Active Medications Generic Name Dose Route Start Last Admin Trade Name Freq PRN Reason Stop Dose Admin Atorvastatin Calcium 10 mg 07/06/20 21:00 07/06/20 21:55 Atorvastatin Calcium 10 Mg Tab PO 10 mg HS PÉREZ Administration Famotidine 20 mg 07/06/20 21:00 07/06/20 21:55 Famotidine/Pf 20 Mg/2ml Vial SLOW IVP 20 mg Q12HR PÉREZ Administration Ferrous Gluconate 324 mg 07/07/20 08:00 07/07/20 07:47 Ferrous Gluconate 324 Mg Tab PO 324 mg QAM-WM PÉREZ Administration Sodium Chloride 1,000 mls @ 100 mls/hr 07/06/20 12:00 07/06/20 22:00 Normal Saline 0.9% IV 1,000 mls .Q10H PÉREZ Administration Insulin Human Regular 100 101 mls @ 0 mls/hr 07/06/20 18:30 07/07/20 02:38 units/ Sodium Chloride IVPB 101 mls INF PÉREZ Administration Protocol As Directed Insulin Glargine 5 units/ 0.05 mls @ 0 mls/hr 07/07/20 09:00 07/07/20 08:46 Miscellaneous Medication SC 0.05 mls QAM PÉREZ Administration Levothyroxine Sodium 125 mcg 07/07/20 06:00 07/07/20 05:41 Levothyroxine Sodium 125 Mcg Tab PO 125 mcg 0600 PÉREZ Administration Hospitalist Exam General Appearance: NAD, awake alert Eye: PERRL, anicteric sclera ENT: normocephalic atraumatic, no oropharyngeal lesions, moist mucosa Neck: supple, symmetric, no JVD, no thyromegaly, no lymphadenopathy, no carotid bruit Heart: RRR, no murmur, no gallops, no rubs, normal peripheral pulses Respiratory: CTAB, no wheezes, no rales, no ronchi, normal chest expansion, no tachypnea, normal percussion Gastrointestinal: soft, non-tender, non-distended, normal bowel sounds, no palpable masses, no hepatomegaly, no splenomegaly, no bruit Extremities: no cyanosis, no clubbing, no edema Skin: normal turgor, no lesions, no rashes Neurological: cranial nerve grossly intact, normal sensation to touch, no weakness, no focal deficits, no new deficit Musculoskeletal: normal tone, normal strength, no muscle wasting Psychiatric: normal affect, normal behavior, A&O x 3 Hosp A/P - Plan Diabetic Ketoacidosis P/w AMS, blood glucose >500. VBG pH 7.0, anion gap 30, bicarb 9. BHB 8.95. Patient started on DKA protocol with insulin drip in ER. Patient now with blood sugars in the 100s am of 07/07. Insulin drop has been stopped. Anion gap has closed to 11, BHB now 0.06. K 4.6. Patient up in bed AOx4 eating a large b reakfast. Patient was on 5 units of lantus qam. Will restart SC insulin regimen with ISS and closely monitor blood sugars q2hrs. Plan -Transition from insulin drip to SC insulin, lantus 5 units qam -Glucose checks q2h -Closely monitor electrolytes -Patient will likely need further adjustment of his regimen. Acute metabolic encephalopathy Acute metabolic encephalopathy 2/2 DKA. Patient now at baseline mental status, a&ox4. CT brain on admission with no acute findings. Hypothyroidism Continue home levothyroxine. Hypertension Hold home amlodipine. Will restart if BP allows. Dementia Mild early dementia. Question non-compliance with insulin regimen given multiple recent admissions for DKA. Patient currently AOx4. Takes seroquel 12.5 mg qhs. Will continue this. DVT prophylaxis: lovenox FULL CODE Case discussed with attending physician.
[2020-07-07] MEDS: Sodium Chloride 0.9% 1,000 ML IV SCH ×3 (10:17→21:42)
[2020-07-07] MEDS ORDERED: Famotidine/PF 20 mg/2ml Vial ONE (10:22)
[2020-07-07] MEDS: Famotidine/PF 20 mg/2ml Vial SLOW IVP SCH ×2 (10:24→20:55)
[2020-07-07] MEDS ORDERED: Cholecalciferol 1,000 UNITS (25 MCG) TAB ONE (10:25)
[2020-07-07] MEDS: Cholecalciferol 1,000 UNITS (25 MCG) TAB PO SCH (10:26)
[2020-07-07] MEDS ORDERED: HumaLOG 300 UNITS/3 ML VIAL ONE (16:56)
[2020-07-07] MEDS: Atorvastatin Calcium 10 MG TAB PO SCH (20:55)
[2020-07-07 22:45] VITALS: BMI 23.3
[2020-07-08 04:52] LABS: #Eosinphils 0.1 thou/uL (0.0-0.7); #Lymphocytes 0.8 thou/uL (1.20-3.40); #Monocytes 0.4 thou/uL (0.11-0.59); #Neutrophils 3.5 thou/uL (1.40-6.50); %Basophils 0.5 % (0.0-1.0); %Eosinophils 2.2 % (0.0-10.0); %Lymphocytes 17.4 % (21.0-51.0); %Monocytes 7.7 % (0.0-10.0); %Neutrophils 72.2 % (42.0-75.0); Hemoglobin 10.9 g/dL (14.0-18.0); Mean Corpuscular HGB CONC 32.5 g/dL (32.0-36.0); Mean Corpuscular Hemoglobin 28.6 pg (27.0-31.0); Mean Corpuscular Volume 88.1 fL (78.0-98.0); Mean Platelet Volume 8.6 fL (7.4-10.4); Platelet Count 107 thou/uL (130-400); RBC Distribution Width 13.4 % (11.5-14.5); White Blood Cell (WBC) Count 4.8 thou/uL (4.8-10.8)
[2020-07-08 05:08] LABS: Anion Gap 12 mmol/L (10-20); BUN (Urea Nitrogen) 13 mg/dL (8.4-25.7); Calc. Creatinine Clearance 76 mL/min (70-130); Calcium 7.9 mg/dL (7.8-10.44); Carbon Dioxide 18 mmol/L (23-31); Chloride 113 mmol/L (98-107); Glucose 217 mg/dL (83-110); Potassium 4.2 mmol/L (3.5-5.1); Sodium 139 mmol/L (136-145)
[2020-07-08] MEDS: Levothyroxine Sodium 125 MCG TAB PO SCH (05:23)
[2020-07-08 07:03] VITALS: TEMP 97.7
[2020-07-08] MEDS: Ferrous Gluconate 324 MG TAB PO SCH (08:23)
[2020-07-08] MEDS: Famotidine/PF 20 mg/2ml Vial SLOW IVP SCH (08:23)
[2020-07-08] MEDS: Cholecalciferol 1,000 UNITS (25 MCG) TAB PO SCH (08:23)
[2020-07-08 11:02] VITALS: BP 148/84
[2020-07-08] MEDS: Insulin Glargine 5 UNITS in Pre-Filled Syringe 1 EACH SC SCH (11:04)
--- NOTE | 2020-07-08 11:32 | PDOC.DS.DS ---
Provider Date of Admission: 07/06/20 13:35 Date of Discharge: 07/08/20 Admitting Provider: Meka Yo MD Primary Care Physician: Meghana Beyer MD Course Hospital Course: Discharge diagnosis: 1. Diabetic ketoacidosis 2. Acute kidney injury 3. Hyponatremia Hospital course: Patient is a pleasant 80-year-old gentleman who was admitted to the hospital on July 06, 2020 for diabetic ketoacidosis. He was treated with intravenous insulin and fluids, with resolution of DKA. He is being discharged home in a stable condition. Many thanks for allowing me to participate in your patient's care. Please feel free to contact me with any questions or concerns. Discharge destination: Home Total amount of time spent coordinating this discharge: 22 minutes Resuscitation Status: 07/06/20 11:36 Resuscitation Status Routine Resuscitation Status: FULL: Full Resuscitation Lab Results: 07/08/20 04:27 07/08/20 04:27 Abnormal Lab Results - Last 48 hrs 07/06/20 10:24: Carbon Dioxide 9 L* 07/06/20 11:20: Urine Glucose (UA) Greater than 1000 A, Urine Ketones 80 A 07/06/20 16:03: Chloride 110 H, Carbon Dioxide 9 L*, Anion Gap 21 H, BUN 31 H, Creatinine 1.32 H 07/06/20 21:31: Chloride 111 H, Carbon Dioxide 20 L 07/07/20 05:34: Chloride 115 H, Carbon Dioxide 16 L, Calcium 7.6 L 07/07/20 05:34: RBC 3.89 L, Hgb 11.0 L, Hct 34.3 L, Lymphocytes % 18.7 L, Lymphocytes # 1.1 L 07/08/20 04:27: Chloride 113 H, Carbon Dioxide 18 L 07/08/20 04:27: RBC 3.80 L, Hgb 10.9 L, Hct 33.5 L, Plt Count 107 L, Lymphocytes % 17.4 L, Lymphocytes # 0.8 L Vitals: Vital Signs (12 hours) Temp Pulse Resp BP Pulse Ox 07/08/20 11:01 97.7 F 70 14 148/84 H 99 07/08/20 08:00 100 07/08/20 07:02 97.7 F 70 14 172/85 H 100 07/08/20 04:00 98.1 F 69 20 178/84 H 95 07/08/20 02:02 159/78 H 07/08/20 00:49 184/86 H 07/08/20 00:05 215/98 H Weight Weight 138 lb 8 oz Physical Exam: The patient was seen and examined on the day of discharge. Patient denies chest pain or shortness of breath. Vital signs are stable. S1 and S2 are heard. Lungs are clear to auscultation bilaterally. Plan Home Medications: Medication Instructions Recorded Confirmed Type Amlodipine [Norvasc] 10 mg PO DAILY #30 tab 06/29/20 07/07/20 Rx Atorvastatin Calcium [Lipitor] 10 mg PO DAILY #30 tab 06/29/20 07/07/20 Rx Cholecalciferol [Vitamin D3] 1,000 units PO DAILY tab 06/29/20 07/07/20 Rx Ferrous Gluconate [Fergon] 324 mg PO QAM-WM #30 tab 06/29/20 07/07/20 Rx Insulin Glargine [Lantus] 5 units SC QAM vial 06/29/20 07/07/20 Rx Insulin Regular [HumuLIN R Vial] 0 units SC .MODERATE SLIDING SC 06/29/20 07/07/20 Rx PRN vial Levothyroxine Sodium [Synthroid] 125 mcg PO 0600 #30 tab 06/29/20 07/07/20 Rx Lisinopril [Zestril] 10 mg PO DAILY #30 tab 06/29/20 07/07/20 Rx QUEtiapine Fumarate [SEROquel] 12.5 mg PO HS PRN #14 tab 06/29/20 07/07/20 Rx Allergies: iodine Allergy (Verified 07/07/20 21:55) shellfish derived Allergy (Verified 07/07/20 21:55) Activity:: Activity as Tolerated Nourishment:: Diabetic Diet Referrals: Meghana Beyer MD [Primary Care Provider] - 3 Days (Please call office to schedule a follow up appointment) Disposition: HOME Quality CORE MEASURES:: N/A
[2020-07-09 10:56] LABS: Base Excess-Venous -18.4 mmol/L (-2.0 to 3.0); Bicarbonate (HCO3v) 10.3 mmol/L (22.0-28.0); CO2 Tension (PvCO2) 33.6 mmHg (40.0-50.0); vO2 Saturation-calc 61.8 % (60.0-85.0)
[2020-07-09 10:57] LABS: Calcium, Ionized 0.98 mmol/L (1.15-1.33); Chloride 107 mmol/L (98-107); Hemoglobin - Calc 12.6 g/dL (14.0-18.0); Sodium 127 mmol/L (138-145); T. Carbon Dioxide 11.3 mmol/L (22.0-28.0)
== END 2020-07-08 14:10 | disposition home or self-care (01) | DRG 637 ==
LOC: ERS 09:50 → ERHOLD 13:35 → 2NO 07-07 18:35
PROVIDERS: ADMIT Internal Medicine; ATTEND Internal Medicine
DX: E11.10 Type 2 diabetes mellitus with ketoacidosis without coma (principal); G93.41 Metabolic encephalopathy; N17.9 Acute kidney failure, unspecified; Z20.822 Contact with and (suspected) exposure to COVID-19; E87.1 Hypo-osmolality and hyponatremia; I10 Essential (primary) hypertension; E03.9 Hypothyroidism, unspecified; F03.90 Unspecified dementia, unspecified severity, without behavioral disturbance, psychotic disturbance, mood disturbance, and anxiety; F17.290 Nicotine dependence, other tobacco product, uncomplicated; I25.10 Atherosclerotic heart disease of native coronary artery without angina pectoris; E78.5 Hyperlipidemia, unspecified; J44.9 Chronic obstructive pulmonary disease, unspecified; Z79.4 Long term (current) use of insulin; Z79.899 Other long term (current) drug therapy; Z95.0 Presence of cardiac pacemaker; Z91.041 Radiographic dye allergy status
CPT/HCPCS: 0240U; 36415; 36416; 80048; 80053; 81003; 82010; 82330; 82435; 82803; 83735; 84100; 84132; 84295; 84484; 85014; 85025; 93005; 96365; 96366; J1815; J3480; J3490; S0028

== ENCOUNTER 2021-03-10 07:10 | Inpatient (IN) | payer MEDICARE, BC ==
[2021-03-10 09:07] LABS: Analyzer IN Cardio ER; Base Excess -10.9 mEq/L (-2.0 to +3.0); Calcium, Ionized (venous) 1.13 mmol/L (1.16-1.32); Chloride (VBG) 104 mmol/L (98-106); Hemoglobin (Hb) 11.9 g/dL (12.6-17.4); Potassium (VBG) 4.31 mmol/L (3.70-5.30); Sodium 132.3 mmol/L (133-146); pH (venous) 7.31 (7.32-7.43)
[2021-03-10 09:10] LABS: Actual Bicarbonate (HCO3v) 14 mEq/L (22-28)
[2021-03-10 09:11] LABS: #Eosinphils 0.1 thou/uL (0.0-0.7); #Lymphocytes 1.3 thou/uL (1.20-3.40); #Monocytes 0.9 thou/uL (0.11-0.59); #Neutrophils 7.3 thou/uL (1.40-6.50); %Basophils 0.1 % (0.0-1.0); %Eosinophils 1.3 % (0.0-10.0); %Lymphocytes 13.5 % (21.0-51.0); %Monocytes 9.5 % (0.0-10.0); %Neutrophils 75.7 % (42.0-75.0); Hemoglobin 10.9 g/dL (14.0-18.0); Mean Corpuscular HGB CONC 31.9 g/dL (32.0-36.0); Mean Corpuscular Hemoglobin 28.2 pg (27.0-31.0); Mean Corpuscular Volume 88.4 fL (78.0-98.0); Mean Platelet Volume 8.4 fL (7.4-10.4); Platelet Count 134 thou/uL (130-400); RBC Distribution Width 13.5 % (11.5-14.5); Red Blood Cell (RBC) Count 3.87 mill/uL (4.70-6.10); White Blood Cell (WBC) Count 9.6 thou/uL (4.8-10.8)
[2021-03-10 09:27] LABS: ALT (SGPT) 8 U/L (8-55); AST (SGOT) 11 U/L (5-34); Albumin 3.2 g/dL (3.4-4.8); Alkaline Phosphatase 59 U/L (40-110); Anion Gap 20 mmol/L (10-20); BUN (Urea Nitrogen) 32 mg/dL (8.4-25.7); Bilirubin, Total 0.3 mg/dL (0.2-1.2); Calc. Creatinine Clearance 0 mL/min (70-130); Calcium 8.6 mg/dL (7.8-10.44); Carbon Dioxide 15 mmol/L (23-31); Chloride 104 mmol/L (98-107); Globulin 2.3 g/dL (2.4-3.5); Glucose 299 mg/dL (83-110); Lipase 10 U/L (8-78); Potassium 4.4 mmol/L (3.5-5.1); Protein, Total 5.5 g/dL (5.8-8.1); Sodium 135 mmol/L (136-145)
[2021-03-10] MEDS ORDERED: Acetaminophen 325 MG TAB PO PRN (10:34)
[2021-03-10] MEDS ORDERED: HUMULIN R 100 UNITS in Sodium Chloride 0.9% 100 ML IVPB SCH (10:34)
[2021-03-10] MEDS ORDERED: Calcium Carbonate 500 MG ChewTAB PO PRN (10:34)
[2021-03-10] MEDS ORDERED: Dextrose 5 %-0.45 % NaCl 1,000 ML IV PRN (10:34)
[2021-03-10] MEDS ORDERED: Ondansetron PF 4 MG/2 ML Vial IVP PRN (10:34)
[2021-03-10] MEDS ORDERED: Guaifenesin DM 100-10/5 ML UDCUP PO PRN (10:34)
[2021-03-10] MEDS ORDERED: Bisacodyl 10 MG SUPP PR PRN (10:34)
[2021-03-10] MEDS ORDERED: Senokot S 8.6-50 MG TAB PO PRN (10:34)
[2021-03-10] MEDS ORDERED: D5 1/2 NS w/20 mEq KCL 1,000 ML IV PRN (10:34)
[2021-03-10] MEDS ORDERED: Sodium Chloride 0.9% 1,000 ML IV PRN ×4 (10:34)
[2021-03-10] MEDS ORDERED: Electrolyte Replacement Protocol 1 EACH IVPB PRN (10:34)
[2021-03-10] MEDS ORDERED: NS 0.9% w/ 20 MEQ KCL 1,000 ML IV PRN ×2 (10:34)
[2021-03-10] MEDS ORDERED: INSULIN REGULAR IN 0.9 % NACL 100 UNIT/100 ML BAG ONE (10:59)
[2021-03-10] MEDS ORDERED: NS 0.9% w/ 20 MEQ KCL 1,000 ML ONE ×2 (10:59→15:51)
[2021-03-10 11:05] LABS: Bacteria/HPF None Seen HPF (None Seen); Bilirubin Negative (Negative); Blood, Urine 2+ (Negative); Clarity Clear (Clear); Glucose, Urine (Dipstick) Greater than 1000 mg/dL (Negative); Ketone, Urine 60 mg/dL (Negative); Leukocyte 75 Leu/uL (Negative); Nitrite Negative (Negative); Protein, Urine (Dipstick) Negative (Neg-Trace); Squamous Epithelial None Seen HPF (0-3); Urobilinogen Normal mg/dL (Less than 2); WBC/HPF 21-50 HPF (0-3); pH, Urine 5.5 (5.0-9.0)
[2021-03-10] MEDS ORDERED: cefTRIAXone\\ROCEPHIN 1 GM VIAL ONE (11:12)
[2021-03-10 12:32] LABS: SARS-CoV-2 NAA Rapid Test Not Detected (NotDetected)
[2021-03-10 15:28] LABS: Anion Gap 17 mmol/L (10-20); BUN (Urea Nitrogen) 29 mg/dL (8.4-25.7); Calc. Creatinine Clearance 0 mL/min (70-130); Calcium 8.4 mg/dL (7.8-10.44); Carbon Dioxide 16 mmol/L (23-31); Chloride 110 mmol/L (98-107); Glucose 206 mg/dL (83-110); Potassium 4.6 mmol/L (3.5-5.1); Sodium 138 mmol/L (136-145)
[2021-03-10] MEDS ORDERED: Potassium Chloride 20 MEQ/100 ML PREMIX BAG ONE (15:49)
[2021-03-10] MEDS ORDERED: Dextrose 50% Abboject 50 ML SYRINGE SLOW IVP PRN (18:42)
[2021-03-10] MEDS ORDERED: HumaLOG 300 UNITS/3 ML VIAL SC PRN ×2 (18:42)
[2021-03-10] MEDS ORDERED: Dextrose 5% in Water 1,000 ML IV PRN (18:42)
[2021-03-10] MEDS ORDERED: Sodium Chloride 0.9% 1,000 ML IV SCH (18:45)
[2021-03-10] MEDS: Lantus 1000 UNITS/10 ML VIAL SC SCH (19:34)
[2021-03-10] MEDS ORDERED: Atorvastatin Calcium 10 MG TAB PO SCH (21:00)
[2021-03-10 21:19] LABS: Anion Gap 13 mmol/L (10-20); BUN (Urea Nitrogen) 23 mg/dL (8.4-25.7); Calc. Creatinine Clearance 0 mL/min (70-130); Calcium 8.1 mg/dL (7.8-10.44); Carbon Dioxide 15 mmol/L (23-31); Chloride 114 mmol/L (98-107); Glucose 66 mg/dL (83-110); Potassium 4.9 mmol/L (3.5-5.1); Sodium 137 mmol/L (136-145)
[2021-03-11 02:54] VITALS: BMI 20.8
[2021-03-11 03:49] VITALS: TEMP 97.1
[2021-03-11 04:53] LABS: #Eosinphils 0.1 thou/uL (0.0-0.7); #Lymphocytes 1.1 thou/uL (1.20-3.40); #Monocytes 0.5 thou/uL (0.11-0.59); #Neutrophils 3.8 thou/uL (1.40-6.50); %Basophils 0.3 % (0.0-1.0); %Eosinophils 2.4 % (0.0-10.0); %Lymphocytes 20.2 % (21.0-51.0); %Monocytes 8.1 % (0.0-10.0); %Neutrophils 69.1 % (42.0-75.0); Hemoglobin 11.2 g/dL (14.0-18.0); Mean Corpuscular HGB CONC 34.8 g/dL (32.0-36.0); Mean Corpuscular Hemoglobin 30.3 pg (27.0-31.0); Mean Corpuscular Volume 87.2 fL (78.0-98.0); Mean Platelet Volume 8.3 fL (7.4-10.4); Platelet Count 124 thou/uL (130-400); RBC Distribution Width 13.6 % (11.5-14.5); White Blood Cell (WBC) Count 5.5 thou/uL (4.8-10.8)
[2021-03-11 05:05] LABS: Anion Gap 8 mmol/L (10-20); BUN (Urea Nitrogen) 21 mg/dL (8.4-25.7); Calc. Creatinine Clearance 45 mL/min (70-130); Calcium 8.2 mg/dL (7.8-10.44); Carbon Dioxide 23 mmol/L (23-31); Chloride 112 mmol/L (98-107); Glucose 117 mg/dL (83-110); Potassium 4.7 mmol/L (3.5-5.1); Sodium 138 mmol/L (136-145)
[2021-03-11] MEDS ORDERED: Levothyroxine Sodium 125 MCG TAB PO SCH (06:00)
[2021-03-11] MEDS ORDERED: Ferrous Gluconate 324 MG TAB PO SCH (08:00)
[2021-03-11 08:10] VITALS: BP 153/67
[2021-03-11] MEDS ORDERED: Amlodipine 10 MG TAB PO SCH (09:00)
[2021-03-11] MEDS: Lantus 1000 UNITS/10 ML VIAL SC SCH (09:14)
== END 2021-03-11 13:45 | disposition home health service (06) | DRG 638 ==
LOC: ERS 07:10 → ERHOLD 09:59 → SURG A 20:27
PROVIDERS: ADMIT Internal Medicine; ATTEND Internal Medicine
DX: E10.10 Type 1 diabetes mellitus with ketoacidosis without coma (principal); N17.9 Acute kidney failure, unspecified; I10 Essential (primary) hypertension; E03.9 Hypothyroidism, unspecified; G31.84 Mild cognitive impairment of uncertain or unknown etiology; E78.5 Hyperlipidemia, unspecified; D64.9 Anemia, unspecified; E86.0 Dehydration; J44.9 Chronic obstructive pulmonary disease, unspecified; Z20.822 Contact with and (suspected) exposure to COVID-19; Z95.0 Presence of cardiac pacemaker; Z79.4 Long term (current) use of insulin; Z79.899 Other long term (current) drug therapy; Z91.041 Radiographic dye allergy status; Z91.013 Allergy to seafood
CPT/HCPCS: 36415; 36416; 80048; 81003; 82010; 82805; 83690; 83930; 84484; 85025; J0696; J1815; J3480; J7030; J7042; J7050; U0002

== ENCOUNTER 2021-04-18 11:01 | Inpatient (IN) | payer MEDICARE, BC ==
[2021-04-18] MEDS ORDERED: INSULIN REGULAR IN 0.9 % NACL 100 UNIT/100 ML BAG ONE ×2 (11:13→11:14)
[2021-04-18] MEDS ORDERED: Calcium Gluc 4.6 MEQ/10 ML (100 MG/ML) ONE ×2 (11:35→12:40)
[2021-04-18] MEDS ORDERED: Sodium Bicarb 50 MEQ/50 ML Abboject 8.4% SYRINGE ONE ×4 (11:35→12:55)
[2021-04-18] MEDS ORDERED: Albuterol Sulfate 2.5 mg/3 ml Neb ONE (11:36)
[2021-04-18 11:44] LABS: Hemoglobin 10.2 g/dL (14.0-18.0); Mean Corpuscular HGB CONC 29.5 g/dL (32.0-36.0); Mean Corpuscular Hemoglobin 28.7 pg (27.0-31.0); Mean Corpuscular Volume 97.2 fL (78.0-98.0); Mean Platelet Volume 8.3 fL (7.4-10.4); Platelet Count 188 thou/uL (130-400); RBC Distribution Width 14.6 % (11.5-14.5); Red Blood Cell (RBC) Count 3.57 mill/uL (4.70-6.10)
[2021-04-18 11:46] LABS: Actual Bicarbonate (HCO3a) 2.4 mEq/L (22-28); Analyzer IN Cardio ER; Base Excess (BEa) -29.2 mEq/L (-2.0 to +3.0); Calcium, Ionized (arterial) 1.24 mmol/L (1.12-1.30); Carboxyhemoglobin (COHb) 0.3 gm% (0.0-3.0); Hemoglobin (Hb) 10.2 g/dL (14.0-18.0); O2 Tension (PaO2), arterial 139.5 mmHg (> 70.0); Potassium - ABG Lab 6.02 mmol/L (3.70-5.30)
[2021-04-18 11:49] LABS: CO2 Tension 13.4 mmHg (35.0-45.0); Puncture Site LRA; pH, Arterial 6.88 (7.35-7.45)
[2021-04-18 11:50] LABS: INR-International Normal Ratio 1.6; PTT 27.7 sec (22.9-36.1); Prothrombin Time 19.6 sec (12.0-14.7)
[2021-04-18] MEDS ORDERED: Insulin Regular 300 UNITS/3 ML VIAL ONE (11:50)
[2021-04-18 11:56] LABS: ALT (SGPT) 14 U/L (8-55); AST (SGOT) 17 U/L (5-34); Albumin 3.5 g/dL (3.4-4.8); Alkaline Phosphatase 65 U/L (40-110); BUN (Urea Nitrogen) 67 mg/dL (8.4-25.7); Bilirubin, Total 0.3 mg/dL (0.2-1.2); Calc. Creatinine Clearance 0 mL/min (70-130); Calcium 9.1 mg/dL (7.8-10.44); Chloride 95 mmol/L (98-107); Globulin 2.4 g/dL (2.4-3.5); Potassium 6.5 mmol/L (3.5-5.1); Protein, Total 5.9 g/dL (5.8-8.1); Sodium 133 mmol/L (136-145)
[2021-04-18 11:58] LABS: CK (CPK) 242 U/L (30-200); Lipase 51 U/L (8-78); Magnesium 2.8 mg/dL (1.6-2.6)
[2021-04-18 11:59] LABS: Carbon Dioxide Less than 8 mmol/L (23-31)
[2021-04-18 12:06] LABS: #Lymphocytes 0.8 thou/uL (1.20-3.40); #Monocytes 1.5 thou/uL (0.11-0.59); #Neutrophils 13.6 thou/uL (1.40-6.50); %Eosinophils 0.3 % (0.0-10.0); %Lymphocytes 4.8 % (21.0-51.0); %Monocytes 9.6 % (0.0-10.0); %Neutrophils 85.3 % (42.0-75.0)
[2021-04-18 12:07] LABS: Burr Cells SLIGHT = 2-5 cells (100X) (0-1/hpf); MDiff Complete? YES; Ovalocytes MODERATE= 6-15 cells (100X) (0-1/hpf); Platelet Morphology Comment Appears Adequate; Polychromasia SLIGHT = 2-3 cells (100X) (0-2/hpf)
[2021-04-18 12:09] LABS: Glucose 835 mg/dL (83-110)
[2021-04-18 12:44] LABS: T4 7.2 ug/dL (4.87-11.72); Thyroid Stimulating Hormone 4.1038 uIU/mL (0.35-4.94)
[2021-04-18 12:46] LABS: Actual Bicarbonate (HCO3v) 3 mEq/L (22-28); Analyzer IN Cardio ER; Base Excess -28.9 mEq/L (-2.0 to +3.0); Calcium, Ionized (venous) 1.16 mmol/L (1.16-1.32); Chloride (VBG) 95 mmol/L (98-106); Hemoglobin (Hb) 11.1 g/dL (12.6-17.4); Potassium (VBG) 5.92 mmol/L (3.70-5.30); Sodium 133.6 mmol/L (133-146); pH (venous) 6.89 (7.32-7.43)
[2021-04-18] MEDS ORDERED: Calcium Chloride 1 GM/10 ML Abboject SYRINGE ONE (12:47)
[2021-04-18 13:03] LABS: ALT (SGPT) 14 U/L (8-55); AST (SGOT) 18 U/L (5-34); Albumin 3.5 g/dL (3.4-4.8); Alkaline Phosphatase 70 U/L (40-110); BUN (Urea Nitrogen) 65 mg/dL (8.4-25.7); Bilirubin, Total 0.3 mg/dL (0.2-1.2); Calc. Creatinine Clearance 0 mL/min (70-130); Chloride 96 mmol/L (98-107); Globulin 2.5 g/dL (2.4-3.5); Potassium 5.9 mmol/L (3.5-5.1); Sodium 133 mmol/L (136-145)
[2021-04-18] MEDS ORDERED: D5 1/2 NS w/20 mEq KCL 1,000 ML IV PRN (13:09)
[2021-04-18] MEDS ORDERED: NS 0.9% w/ 20 MEQ KCL 1,000 ML IV PRN ×2 (13:09)
[2021-04-18] MEDS ORDERED: Sodium Chloride 0.9% 1,000 ML IV PRN (13:09)
[2021-04-18] MEDS ORDERED: Dextrose 5 %-0.45 % NaCl 1,000 ML IV PRN (13:09)
[2021-04-18] MEDS ORDERED: Electrolyte Replacement Protocol 1 EACH IVPB ONE (13:09)
[2021-04-18 13:15] LABS: Carbon Dioxide Less than 8 mmol/L (23-31); Glucose 744 mg/dL (83-110)
[2021-04-18] MEDS ORDERED: HUMULIN R 100 UNITS in Sodium Chloride 0.9% 100 ML IVPB SCH (13:15)
[2021-04-18 13:58] LABS: Analyzer IN Cardio ER; Base Excess -28.4 mEq/L (-2.0 to +3.0); Calcium, Ionized (venous) 1.32 mmol/L (1.16-1.32); Chloride (VBG) 96 mmol/L (98-106); Hemoglobin (Hb) 11.8 g/dL (12.6-17.4); Potassium (VBG) 5.52 mmol/L (3.70-5.30); Sodium 137.1 mmol/L (133-146)
[2021-04-18 14:02] LABS: Bilirubin Small (Negative); Blood, Urine Trace (Negative); Glucose, Urine (Dipstick) >=1000 mg/dL (Negative); Ketone, Urine 15 mg/dL (Negative); Leukocyte Negative (Negative); Nitrite Negative (Negative); Protein, Urine (Dipstick) Trace mg/dL (Neg-Trace); Specific Gravity, Urine 1.025 (1.005-1.030); Urobilinogen 0.2 mg/dL (Less than 2); pH, Urine 5.5 (5.0-9.0)
[2021-04-18 14:04] LABS: Clarity Clear (Clear)
[2021-04-18 14:05] LABS: Actual Bicarbonate (HCO3v) 4 mEq/L (22-28); pH (venous) 6.88 (7.32-7.43)
[2021-04-18 14:06] LABS: Bacteria/HPF None Seen HPF (None Seen); RBC/HPF 0-3 HPF (0-3); Squamous Epithelial None Seen HPF (0-3); WBC/HPF 0-3 HPF (0-3)
[2021-04-18 14:15] LABS: Magnesium 2.7 mg/dL (1.6-2.6)
[2021-04-18 14:20] LABS: ALT (SGPT) 16 U/L (8-55); AST (SGOT) 20 U/L (5-34); Albumin 3.6 g/dL (3.4-4.8); Alkaline Phosphatase 73 U/L (40-110); BUN (Urea Nitrogen) 63 mg/dL (8.4-25.7); Bilirubin, Total 0.3 mg/dL (0.2-1.2); Calc. Creatinine Clearance 0 mL/min (70-130); Calcium 9.7 mg/dL (7.8-10.44); Chloride 97 mmol/L (98-107); Globulin 2.7 g/dL (2.4-3.5); Potassium 5.5 mmol/L (3.5-5.1); Protein, Total 6.3 g/dL (5.8-8.1); Sodium 136 mmol/L (136-145)
[2021-04-18 14:30] LABS: Carbon Dioxide Less than 8 mmol/L (23-31); Glucose 796 mg/dL (83-110)
[2021-04-18 14:45] LABS: Lactic Acid 5.1 mmol/L (0.5-2.2)
[2021-04-18 15:51] LABS: Lactic Acid 4.8 mmol/L (0.5-2.2)
[2021-04-18 16:46] LABS: SARS-CoV-2 NAA Rapid Test Not Detected (NotDetected)
== END 2021-04-18 16:50 | disposition hospice, inpatient (51) | DRG 637 ==
LOC: ERS 11:01 → ERHOLD 13:11
PROVIDERS: ADMIT Hospitalist; ATTEND Hospitalist
PROC: 3E043XZ Introduction of Vasopressor into Central Vein, Percutaneous Approach (ICD-10-PCS; principal; 2021-04-18)
PROC: 06HY33Z Insertion of Infusion Device into Lower Vein, Percutaneous Approach (ICD-10-PCS; 2021-04-18)
DX: E11.10 Type 2 diabetes mellitus with ketoacidosis without coma (principal); G93.41 Metabolic encephalopathy; R57.1 Hypovolemic shock; Z20.822 Contact with and (suspected) exposure to COVID-19; Z66 Do not resuscitate; Z51.5 Encounter for palliative care; N18.30 Chronic kidney disease, stage 3 unspecified; E11.22 Type 2 diabetes mellitus with diabetic chronic kidney disease; F03.90 Unspecified dementia, unspecified severity, without behavioral disturbance, psychotic disturbance, mood disturbance, and anxiety; I12.9 Hypertensive chronic kidney disease with stage 1 through stage 4 chronic kidney disease, or unspecified chronic kidney disease; E87.5 Hyperkalemia; F17.210 Nicotine dependence, cigarettes, uncomplicated; Z91.041 Radiographic dye allergy status; Z95.0 Presence of cardiac pacemaker; Z91.013 Allergy to seafood; Z79.899 Other long term (current) drug therapy; Z79.4 Long term (current) use of insulin; Z79.890 Hormone replacement therapy; Z80.1 Family history of malignant neoplasm of trachea, bronchus and lung
CPT/HCPCS: 36415; 36416; 36600; 71045; 80053; 81003; 82010; 82274; 82550; 82553; 82805; 83605; 83690; 83735; 83880; 84436; 84443; 84481; 84484; 85025; 85610; 85730; 86850; 86900; 86901; 87040; 93005; 94644; 94760; J0610; J1815; J7611; U0002

== ENCOUNTER 2021-04-18 17:07 | Inpatient (IN) | payer OTHER ==
[2021-04-18] MEDS ORDERED: Scopolamine 1.5 mg/72 hour Patch TOP PRN (17:16)
[2021-04-18] MEDS ORDERED: Haloperidol Lactate 5 MG/ML VIAL SLOW IVP PRN (17:18)
[2021-04-18] MEDS ORDERED: Lorazepam 2 MG/ML VIAL SLOW IVP PRN (17:20)
[2021-04-18] MEDS ORDERED: Morphine 4 MG/ML VIAL SLOW IVP PRN (17:22)
[2021-04-18] MEDS: Morphine 4 MG/ML VIAL SLOW IVP SCH ×4 (19:20→23:59)
[2021-04-18] MEDS: Lorazepam 2 MG/ML VIAL SLOW IVP SCH (21:03)
[2021-04-19] MEDS: Lorazepam 2 MG/ML VIAL SLOW IVP SCH ×4 (01:45→12:34)
[2021-04-19] MEDS: Morphine 4 MG/ML VIAL SLOW IVP SCH ×6 (01:46→12:35)
[2021-04-19 08:53] VITALS: BP 90/47; TEMP 97.6
[2021-04-19] MEDS ORDERED: Bisacodyl 10 MG SUPP PR SCH (09:00)
== END 2021-04-19 13:40 | disposition expired | DRG 951 ==
LOC: ONC 17:07
PROVIDERS: ADMIT Family Medicine; ATTEND Family Medicine
DX: Z51.5 Encounter for palliative care (principal); E11.10 Type 2 diabetes mellitus with ketoacidosis without coma; G93.41 Metabolic encephalopathy; Z66 Do not resuscitate; F03.90 Unspecified dementia, unspecified severity, without behavioral disturbance, psychotic disturbance, mood disturbance, and anxiety; N18.30 Chronic kidney disease, stage 3 unspecified; G31.84 Mild cognitive impairment of uncertain or unknown etiology; E87.5 Hyperkalemia; R57.1 Hypovolemic shock; I12.9 Hypertensive chronic kidney disease with stage 1 through stage 4 chronic kidney disease, or unspecified chronic kidney disease; Z91.041 Radiographic dye allergy status; Z91.013 Allergy to seafood; Z79.82 Long term (current) use of aspirin; Z79.4 Long term (current) use of insulin; Z79.01 Long term (current) use of anticoagulants; Z79.899 Other long term (current) drug therapy; Z79.890 Hormone replacement therapy; Z79.84 Long term (current) use of oral hypoglycemic drugs; Z95.0 Presence of cardiac pacemaker
CPT/HCPCS: J2060; J2270